=== PATIENT | male | born 1955 | race Caucasian/White ===

== ENCOUNTER 2020-01-12 06:32 | Inpatient (IN) | payer MEDICARE, OTHER ==
[~2020-01-12] VITALS: Ht 167.6 cm; Wt 62.7 kg
[~2020-01-12 06:32] MED LIST: ASPI81TA52 PO; DILT-36 PO; FURO40TA4 PO; IPRA3AMP9 NEB; OMEP20CA15 PO
--- NOTE | 2020-01-12 07:32 | NUR ---
IV ok in right forearm, no new labs needed they were drawn at 0200 at [facility] before transported to our ED, per DR. Anderson
[2020-01-12 08:14] LABS: CLARITY,URINE SLIGHTLY CLOUDY (Clear); COLOR,URINE STRAW (Yellow); GLUCOSE, URINE 250 mg/dl (Neg); KETONES,URINE NEGATIVE (Neg); LEUKOCYTE ESTERASE ,URINE NEGATIVE (Neg); NITRITES, URINE NEGATIVE (Neg); OCCULT BLOOD,URINE LARGE (Neg); PROTEIN,URINE >=300 mg/dl (Neg); UROBILINOGEN,URINE 0.2 E.U/dL (0.2-1.0)
[2020-01-12 08:15] LABS: UA COLLECTION TYPE URINAL
[2020-01-12 08:20] LABS: MUCUS STRANDS FEW /LPF (Neg); SQUAMOUS EPITHELIAL CELL,UR FEW /LPF (FEW)
[2020-01-12 08:21] LABS: BACTERIA,URINE FEW /HPF (Neg); WBC,URINE 0-4 /HPF (0-4)
[2020-01-12] MEDS ORDERED: normal saline 1000ml 1,000 ML IV SCH (08:30)
[2020-01-12] MEDS ORDERED: HYDROcodone/acetaminophen 5mg/325mg tablet PO PRN (08:30)
[2020-01-12] MEDS ORDERED: acetaminophen 325mg tablet PO PRN ×2 (08:30)
[2020-01-12] MEDS ORDERED: morphine 2 MG/ML inj. syringe IV PRN (08:30)
[2020-01-12] MEDS ORDERED: LOPE2CAP PO (08:34)
[2020-01-12] MEDS ORDERED: TIOT4MIS5 IH (09:00)
[2020-01-12] MEDS ORDERED: BUDE10.2 INH (09:00)
--- NOTE | 2020-01-12 09:11 | NUR ---
Faxed late meal tray for heart healthy diet to dietary.
[2020-01-12 09:13] LABS: ALBUMIN 3.1 G/DL (3.4-5.0); ANION GAP 17 (8-16); BLOOD UREA NITROGEN 94 MG/DL (7-18); BUN/CREATININE RATIO 13.9 (5.4-32.0); CALCIUM 8.5 MG/DL (8.5-10.1); CHLORIDE 105 MMOL/L (99-107); CREATININE 6.78 MG/DL (0.60-1.10); GLUCOSE 95 MG/DL (70-104); POTASSIUM 3.8 MMOL/L (3.5-5.1); SODIUM 139 MMOL/L (135-145); TOTAL CARBON DIOXIDE 16.6 MMOL/L (24-32); eGFR 8 ML/MIN
[2020-01-12 09:14] LABS: BASOPHILS # (AUTO) 0.1 X10'3 (0-0.2); BASOPHILS % (AUTO) 0.8 % (0-1); EOSINOPHILS # (AUTO) 0.2 X10'3 (0-0.9); EOSINOPHILS % (AUTO) 2.1 % (0-6); HEMATOCRIT 36.3 % (42.0-52.0); HEMOGLOBIN 11.8 g/dl (14.0-17.9); LYMPHOCYTES # (AUTO) 0.5 X10'3 (1.1-4.8); LYMPHOCYTES % (AUTO) 7.2 % (21-51); MEAN CORPUSCULAR HEMOGLOBIN 25.8 PG (27.0-31.0); MEAN CORPUSCULAR HGB CONC 32.4 g/dL (33.0-36.5); MEAN CORPUSCULAR VOLUME 79.6 FL (78-98); MEAN PLATELET VOLUME 7.7 FL (7.4-10.4); MONOCYTES # (AUTO) 0.6 X10'3 (0-0.9); MONOCYTES % (AUTO) 8.8 % (2-12); NEUTROPHILS # (AUTO) 5.9 X10'3 (1.8-7.7); NEUTROPHILS % (AUTO) 81.1 % (42-75); PLATELET COUNT 288 X10'3 (140-440); RED BLOOD COUNT 4.56 X10'6 (4.70-6.10); RED CELL DISTRIBUTION WIDTH 15.5 % (11.5-14.5); WHITE BLOOD COUNT 7.2 X10'3 (4.5-11.0)
[2020-01-12 09:49] VITALS: BP 163/113
[2020-01-12] MEDS ORDERED: IPRA3AMP31 NEB (09:50)
[2020-01-12] MEDS ORDERED: DILT180C53 PO (09:51)
--- NOTE | 2020-01-12 10:00 | NUR ---
Patient arrived to room 350B. Oriented patient to call light, bed controls, TV. VSS.
--- NOTE | 2020-01-12 10:00 | NUR ---
Received pt report from ER nurse Rhett VASQUEZ.
--- NOTE | 2020-01-12 10:29 | NUR ---
Informed Dr. Ocampo of BP 163/113. to look at orders.
[2020-01-12 11:51] VITALS: BP 173/118
--- NOTE | 2020-01-12 11:54 | NUR ---
MD aware of BP 173/118. to adjust orders.
[2020-01-12] MEDS ORDERED: furosemide 40mg/4ml inj IV SCH (14:30)
[2020-01-12] MEDS ORDERED: ipratropium/albuterol 3ml nebule NEB SCH (15:00)
[2020-01-12] MEDS: ipratropium/albuterol 3ml nebule NEB SCH ×2 (15:00→21:00)
[2020-01-12] MEDS: furosemide 40mg/4ml inj IV SCH ×2 (15:45→23:32)
[2020-01-12] MEDS ORDERED: furosemide 20 MG/2 ML vial IV ONE (15:55)
--- NOTE | 2020-01-12 16:30 | NUR ---
Dr. Gonzáles informed of CO2 of 16.6. No new orders at this time.
[2020-01-12] MEDS: hyDRALAzine 10mg tablet PO SCH (16:38)
--- NOTE | 2020-01-12 17:00 | NUR ---
Student documentation: Vivian Carr RN Clinical Instructor for [facility], have reviewed all interventions, assessments performed and documented by Na BARRAGAN from [facility].
--- NOTE | 2020-01-12 18:30 | NUR ---
Patient in room [facility] 350. I have received report from CHRISTINA Coppola and had the opportunity to ask questions and assume patient care. Ot sitting up in bed no complaints. pt needs weigh bed with bed alarm. Addendum: 01/12/20 at 1944 by Miriam Mc RN Amended: Links added.
--- NOTE | 2020-01-12 18:47 | NUR ---
Problems reprioritized. Patient report given, questions answered & plan of care reviewed with Magy VASQUEZ.
[2020-01-12 19:00] VITALS: BP 169/116
[2020-01-12] MEDS: albuterol 2.5 MG/3 ML nebule NEB SCH ×3 (20:17→23:41)
[2020-01-12] MEDS: budesonide 0.5mg/2ml UD nebule IH SCH (20:18)
[2020-01-12 20:30] VITALS: BP 162/98
[2020-01-12] MEDS: heparin, porcine 5000 units/ml vial SQ SCH (20:30)
[2020-01-12] MEDS: docusate sod 100mg capsule PO SCH (20:30)
[2020-01-12 23:30] VITALS: BP 163/116
[2020-01-13 00:10] VITALS: BP 162/117
[2020-01-13] MEDS: hyDRALAzine 10mg tablet PO SCH ×3 (00:11→16:48)
[2020-01-13 01:19] VITALS: BP 154/97
--- NOTE | 2020-01-13 01:19 | NUR ---
sob when amb to bathroom, pt took oxygen off, o2 back on 2l n/c. Addendum: 01/13/20 at 0121 by Miriam Mc RN Amended: Links added.
[2020-01-13] MEDS: ipratropium/albuterol 3ml nebule NEB SCH (03:00)
[2020-01-13] MEDS: albuterol 2.5 MG/3 ML nebule NEB SCH ×6 (03:05→23:10)
[2020-01-13 06:21] LABS: BASOPHILS # (AUTO) 0.1 X10'3 (0-0.2); BASOPHILS % (AUTO) 0.7 % (0-1); EOSINOPHILS # (AUTO) 0.2 X10'3 (0-0.9); HEMATOCRIT 32.2 % (42.0-52.0); HEMOGLOBIN 10.6 g/dl (14.0-17.9); LYMPHOCYTES # (AUTO) 0.6 X10'3 (1.1-4.8); LYMPHOCYTES % (AUTO) 7.5 % (21-51); MEAN CORPUSCULAR HGB CONC 32.9 g/dL (33.0-36.5); MEAN PLATELET VOLUME 7.7 FL (7.4-10.4); MONOCYTES # (AUTO) 0.7 X10'3 (0-0.9); MONOCYTES % (AUTO) 9.3 % (2-12); NEUTROPHILS # (AUTO) 6.3 X10'3 (1.8-7.7); NEUTROPHILS % (AUTO) 80.5 % (42-75); PLATELET COUNT 283 X10'3 (140-440); RED BLOOD COUNT 4.07 X10'6 (4.70-6.10); RED CELL DISTRIBUTION WIDTH 15.6 % (11.5-14.5); WHITE BLOOD COUNT 7.8 X10'3 (4.5-11.0)
[2020-01-13 06:35] LABS: ALANINE AMINOTRANSFERASE 29 U/L (12-78); ALBUMIN 2.7 G/DL (3.4-5.0); ALBUMIN/GLOBULIN RATIO 0.7 (1.1-1.5); ALKALINE PHOSPHATASE 81 IU/L (46-116); ANION GAP 16 (8-16); ASPARTATE AMINO TRANSFERASE 20 U/L (10-37); BILIRUBIN,TOTAL 0.4 MG/DL (0.1-1.0); BLOOD UREA NITROGEN 97 MG/DL (7-18); BUN/CREATININE RATIO 14.4 (5.4-32.0); CHLORIDE 105 MMOL/L (99-107); CREATININE 6.72 MG/DL (0.60-1.10); GLUCOSE 90 MG/DL (70-104); POTASSIUM 3.6 MMOL/L (3.5-5.1); SODIUM 138 MMOL/L (135-145); TOTAL CARBON DIOXIDE 16.6 MMOL/L (24-32); TOTAL PROTEIN 6.5 G/DL (6.4-8.2); eGFR 8 ML/MIN
--- NOTE | 2020-01-13 06:40 | NUR ---
Problems reprioritized. Patient report given, questions answered & plan of care reviewed with CHRISTINA Fox. Addendum: 01/13/20 at 0640 by Miriam Mc RN Amended: Links added.
--- NOTE | 2020-01-13 06:43 | NUR ---
Patient in room [facility] 350. I have received report from CHRISTINA Bhatti and had the opportunity to ask questions and assume patient care.
[2020-01-13 08:00] VITALS: BP 176/116
[2020-01-13] MEDS ORDERED: diltiazem CD 180mg cap (once-daily) PO SCH (08:00)
[2020-01-13] MEDS ORDERED: non-formulary drug (Tiotropium Bromide (Spiriva Respimat) 2 PUFFS) IH SCH (08:00)
[2020-01-13] MEDS ORDERED: diltiazem CD 120mg capsule (once-daily) PO SCH (08:00)
[2020-01-13] MEDS ORDERED: furosemide 40mg/4ml inj IV SCH (08:00)
[2020-01-13] MEDS: heparin, porcine 5000 units/ml vial SQ SCH ×2 (08:14→20:14)
[2020-01-13] MEDS: furosemide 40mg/4ml inj IV SCH ×2 (08:14→13:55)
[2020-01-13] MEDS: pantoprazole 40mg Tablet.DR PO SCH (08:14)
[2020-01-13] MEDS: docusate sod 100mg capsule PO SCH ×2 (08:14→20:14)
[2020-01-13] MEDS: aspirin 81mg tablet.DR PO SCH (08:14)
[2020-01-13] MEDS: ipratropium/albuterol 3ml nebule NEB PRN (08:44)
[2020-01-13] MEDS: budesonide 0.5mg/2ml UD nebule IH SCH ×2 (08:44→20:18)
[2020-01-13 11:30] VITALS: BP 162/98
[2020-01-13] MEDS: furosemide 10 MG/1 ML 10ml inj IV SCH ×2 (16:49→20:31)
[2020-01-13 18:00] VITALS: BP 146/100
--- NOTE | 2020-01-13 18:43 | NUR ---
Patient in room [facility] 350. I have received report from CHRISTINA Fox and had the opportunity to ask questions and assume patient care. Addendum: 01/13/20 at 1843 by Germania Hopper RN Amended: Links added.
--- NOTE | 2020-01-13 18:45 | NUR ---
Problems reprioritized. Patient report given, questions answered & plan of care reviewed with Dianna Das RN.
[2020-01-13] MEDS: carvedilol 6.25mg tablet PO SCH (20:14)
[2020-01-14] VITALS: BP 143/102
[2020-01-14] MEDS: hyDRALAzine 10mg tablet PO SCH ×3 (00:23→16:44)
[2020-01-14 02:30] VITALS: BP 126/79
[2020-01-14] MEDS: furosemide 10 MG/1 ML 10ml inj IV SCH ×4 (02:38→20:25)
[2020-01-14] MEDS: albuterol 2.5 MG/3 ML nebule NEB SCH ×5 (04:00→20:19)
[2020-01-14 05:34] LABS: BASOPHILS % (AUTO) 0.9 % (0-1); EOSINOPHILS # (AUTO) 0.2 X10'3 (0-0.9); EOSINOPHILS % (AUTO) 3.4 % (0-6); HEMOGLOBIN 10.1 g/dl (14.0-17.9); LYMPHOCYTES # (AUTO) 0.5 X10'3 (1.1-4.8); LYMPHOCYTES % (AUTO) 10.2 % (21-51); MEAN CORPUSCULAR HGB CONC 32.6 g/dL (33.0-36.5); MEAN CORPUSCULAR VOLUME 79.8 FL (78-98); MEAN PLATELET VOLUME 7.7 FL (7.4-10.4); MONOCYTES # (AUTO) 0.7 X10'3 (0-0.9); MONOCYTES % (AUTO) 13.1 % (2-12); NEUTROPHILS # (AUTO) 3.7 X10'3 (1.8-7.7); NEUTROPHILS % (AUTO) 72.4 % (42-75); PLATELET COUNT 225 X10'3 (140-440); RED BLOOD COUNT 3.89 X10'6 (4.70-6.10); RED CELL DISTRIBUTION WIDTH 15.5 % (11.5-14.5); WHITE BLOOD COUNT 5.1 X10'3 (4.5-11.0)
[2020-01-14 05:39] LABS: ALANINE AMINOTRANSFERASE 23 U/L (12-78); ALBUMIN 2.5 G/DL (3.4-5.0); ALBUMIN/GLOBULIN RATIO 0.7 (1.1-1.5); ALKALINE PHOSPHATASE 69 IU/L (46-116); ANION GAP 15 (8-16); ASPARTATE AMINO TRANSFERASE 17 U/L (10-37); BILIRUBIN,TOTAL 0.4 MG/DL (0.1-1.0); BLOOD UREA NITROGEN 99 MG/DL (7-18); BUN/CREATININE RATIO 14.2 (5.4-32.0); CHLORIDE 106 MMOL/L (99-107); CREATININE 6.99 MG/DL (0.60-1.10); GLUCOSE 109 MG/DL (70-104); POTASSIUM 3.8 MMOL/L (3.5-5.1); SODIUM 140 MMOL/L (135-145); TOTAL CARBON DIOXIDE 19.4 MMOL/L (24-32); eGFR 8 ML/MIN
--- NOTE | 2020-01-14 06:29 | NUR ---
Problems reprioritized. Patient report given, questions answered & plan of care reviewed with CHRISTINA Parra.
--- NOTE | 2020-01-14 06:44 | NUR ---
Patient in room [facility] 350. I have received report from EMILY Das RN and had the opportunity to ask questions and assume patient care.
[2020-01-14] MEDS: ipratropium/albuterol 3ml nebule NEB PRN (07:21)
[2020-01-14] MEDS: budesonide 0.5mg/2ml UD nebule IH SCH ×2 (07:21→20:20)
[2020-01-14] MEDS: pantoprazole 40mg Tablet.DR PO SCH (08:44)
[2020-01-14] MEDS: carvedilol 6.25mg tablet PO SCH ×2 (08:44→20:25)
[2020-01-14] MEDS: heparin, porcine 5000 units/ml vial SQ SCH ×2 (08:45→20:25)
[2020-01-14] MEDS: docusate sod 100mg capsule PO SCH ×2 (08:45→20:25)
[2020-01-14] MEDS: aspirin 81mg tablet.DR PO SCH (08:45)
[2020-01-14 12:00] VITALS: BP 133/91
[2020-01-14 18:00] VITALS: BP 136/89
--- NOTE | 2020-01-14 18:07 | NUR ---
Problems reprioritized. Patient report given, questions answered & plan of care reviewed with Kirsten Das RN.
--- NOTE | 2020-01-14 18:16 | NUR ---
Patient in room [facility] 350. I have received report from CHRISTINA Parra and had the opportunity to ask questions and assume patient care. Addendum: 01/14/20 at 1816 by Germania Hopper RN Amended: Links added.
[2020-01-15] VITALS: BP 127/88
[2020-01-15] MEDS: albuterol 2.5 MG/3 ML nebule NEB SCH ×6 (00:12→20:31)
[2020-01-15] MEDS: furosemide 10 MG/1 ML 10ml inj IV SCH ×4 (01:21→20:53)
[2020-01-15] MEDS: hyDRALAzine 10mg tablet PO SCH ×3 (01:21→17:09)
[2020-01-15 05:42] LABS: ALANINE AMINOTRANSFERASE 18 U/L (12-78); ALBUMIN 2.4 G/DL (3.4-5.0); ALBUMIN/GLOBULIN RATIO 0.7 (1.1-1.5); ALKALINE PHOSPHATASE 67 IU/L (46-116); ANION GAP 17 (8-16); ASPARTATE AMINO TRANSFERASE 14 U/L (10-37); BILIRUBIN,TOTAL 0.5 MG/DL (0.1-1.0); BLOOD UREA NITROGEN 102 MG/DL (7-18); BUN/CREATININE RATIO 14.6 (5.4-32.0); CALCIUM 7.8 MG/DL (8.5-10.1); CHLORIDE 103 MMOL/L (99-107); CREATININE 6.99 MG/DL (0.60-1.10); GLUCOSE 101 MG/DL (70-104); POTASSIUM 3.7 MMOL/L (3.5-5.1); SODIUM 139 MMOL/L (135-145); TOTAL CARBON DIOXIDE 18.7 MMOL/L (24-32); TOTAL PROTEIN 5.9 G/DL (6.4-8.2); eGFR 8 ML/MIN
--- NOTE | 2020-01-15 06:22 | NUR ---
Problems reprioritized. Patient report given, questions answered & plan of care reviewed with CHRISTINA Parra. Addendum: 01/15/20 at 0622 by Germania Hopper RN Amended: Links added.
[2020-01-15 06:26] LABS: BASOPHILS % (AUTO) 0.8 % (0-1); EOSINOPHILS # (AUTO) 0.2 X10'3 (0-0.9); HEMATOCRIT 29.9 % (42.0-52.0); HEMOGLOBIN 9.8 g/dl (14.0-17.9); LYMPHOCYTES # (AUTO) 0.6 X10'3 (1.1-4.8); MEAN CORPUSCULAR HGB CONC 32.9 g/dL (33.0-36.5); MEAN CORPUSCULAR VOLUME 78.8 FL (78-98); MEAN PLATELET VOLUME 7.7 FL (7.4-10.4); MONOCYTES # (AUTO) 0.6 X10'3 (0-0.9); MONOCYTES % (AUTO) 11.2 % (2-12); NEUTROPHILS # (AUTO) 4.2 X10'3 (1.8-7.7); PLATELET COUNT 241 X10'3 (140-440); RED BLOOD COUNT 3.79 X10'6 (4.70-6.10); RED CELL DISTRIBUTION WIDTH 15.3 % (11.5-14.5); WHITE BLOOD COUNT 5.6 X10'3 (4.5-11.0)
--- NOTE | 2020-01-15 07:08 | NUR ---
Patient in room [facility] 350. I have received report from Kirsten Das RN and had the opportunity to ask questions and assume patient care.
[2020-01-15] MEDS: budesonide 0.5mg/2ml UD nebule IH SCH ×2 (07:48→20:32)
[2020-01-15] MEDS: carvedilol 6.25mg tablet PO SCH ×2 (08:07→20:52)
[2020-01-15] MEDS: pantoprazole 40mg Tablet.DR PO SCH (08:07)
[2020-01-15] MEDS: heparin, porcine 5000 units/ml vial SQ SCH ×2 (08:08→20:54)
[2020-01-15] MEDS: aspirin 81mg tablet.DR PO SCH (08:08)
[2020-01-15] MEDS: docusate sod 100mg capsule PO SCH ×2 (08:08→20:53)
[2020-01-15 10:02] VITALS: BP 134/86
[2020-01-15 15:43] VITALS: BP 137/70
--- NOTE | 2020-01-15 18:50 | NUR ---
Patient in room [facility] 350. I have received report from Fidel VASQUEZ and had the opportunity to ask questions and assume patient care.
[2020-01-15 19:00] VITALS: BP 150/101
--- NOTE | 2020-01-15 19:00 | NUR ---
Problems reprioritized. Patient report given, questions answered & plan of care reviewed with Ely VASQUEZ.
[2020-01-16] VITALS: BP 139/99
[2020-01-16 00:10] VITALS: BP 132/93
[2020-01-16] MEDS: hyDRALAzine 10mg tablet PO SCH ×4 (00:13→23:44)
[2020-01-16] MEDS: albuterol 2.5 MG/3 ML nebule NEB SCH ×7 (00:22→23:33)
[2020-01-16 02:02] VITALS: BP 130/92
[2020-01-16] MEDS: furosemide 10 MG/1 ML 10ml inj IV SCH ×4 (02:05→20:07)
--- NOTE | 2020-01-16 06:49 | NUR ---
Problems reprioritized. Patient report given, questions answered & plan of care reviewed with Fidel RN.
--- NOTE | 2020-01-16 07:03 | NUR ---
Patient in room [facility] 350. I have received report from OG VASQUEZ and had the opportunity to ask questions and assume patient care.
--- NOTE | 2020-01-16 07:03 | NUR ---
Patient in room [facility] 350. I have received report from gianna VASQUEZ and had the opportunity to ask questions and assume patient care.
--- NOTE | 2020-01-16 07:05 | NUR ---
Patient in room [facility] 350. I have received report from Fidel VASQUEZ and had the opportunity to ask questions and assume patient care.
[2020-01-16] MEDS: budesonide 0.5mg/2ml UD nebule IH SCH ×2 (07:15→20:06)
[2020-01-16 07:45] VITALS: BP 143/100
[2020-01-16 08:12] LABS: BASOPHILS % (AUTO) 0.8 % (0-1); EOSINOPHILS # (AUTO) 0.2 X10'3 (0-0.9); EOSINOPHILS % (AUTO) 3.2 % (0-6); HEMATOCRIT 31.1 % (42.0-52.0); HEMOGLOBIN 10.4 g/dl (14.0-17.9); LYMPHOCYTES # (AUTO) 0.7 X10'3 (1.1-4.8); LYMPHOCYTES % (AUTO) 11.1 % (21-51); MEAN CORPUSCULAR HEMOGLOBIN 26.3 PG (27.0-31.0); MEAN CORPUSCULAR HGB CONC 33.5 g/dL (33.0-36.5); MEAN CORPUSCULAR VOLUME 78.7 FL (78-98); MEAN PLATELET VOLUME 7.6 FL (7.4-10.4); MONOCYTES # (AUTO) 0.7 X10'3 (0-0.9); MONOCYTES % (AUTO) 10.8 % (2-12); NEUTROPHILS # (AUTO) 4.8 X10'3 (1.8-7.7); NEUTROPHILS % (AUTO) 74.1 % (42-75); PLATELET COUNT 265 X10'3 (140-440); RED BLOOD COUNT 3.96 X10'6 (4.70-6.10); RED CELL DISTRIBUTION WIDTH 15.6 % (11.5-14.5); WHITE BLOOD COUNT 6.5 X10'3 (4.5-11.0)
[2020-01-16] MEDS: pantoprazole 40mg Tablet.DR PO SCH (08:30)
[2020-01-16] MEDS: docusate sod 100mg capsule PO SCH ×2 (08:33→20:08)
[2020-01-16] MEDS: carvedilol 6.25mg tablet PO SCH ×2 (08:34→20:08)
[2020-01-16] MEDS: aspirin 81mg tablet.DR PO SCH (08:36)
[2020-01-16] MEDS: heparin, porcine 5000 units/ml vial SQ SCH ×2 (08:38→20:08)
[2020-01-16 08:47] LABS: ALANINE AMINOTRANSFERASE 24 U/L (12-78); ALBUMIN 2.7 G/DL (3.4-5.0); ALBUMIN/GLOBULIN RATIO 0.7 (1.1-1.5); ALKALINE PHOSPHATASE 72 IU/L (46-116); ANION GAP 15 (8-16); ASPARTATE AMINO TRANSFERASE 15 U/L (10-37); BILIRUBIN,TOTAL 0.4 MG/DL (0.1-1.0); BLOOD UREA NITROGEN 104 MG/DL (7-18); BUN/CREATININE RATIO 14.1 (5.4-32.0); CALCIUM 7.9 MG/DL (8.5-10.1); CHLORIDE 100 MMOL/L (99-107); CREATININE 7.39 MG/DL (0.60-1.10); GLUCOSE 94 MG/DL (70-104); POTASSIUM 3.5 MMOL/L (3.5-5.1); SODIUM 136 MMOL/L (135-145); TOTAL PROTEIN 6.5 G/DL (6.4-8.2); eGFR 7 ML/MIN
--- NOTE | 2020-01-16 10:16 | NUR ---
Student Medication Administration: For this medication-pass time frame, all medication were reviewed, dispensed, administered and documented per hospital policy by Peter, nursing students.
--- NOTE | 2020-01-16 12:08 | NUR ---
Problems reprioritized. Patient report given, questions answered & plan of care reviewed with Fidel RN.
[2020-01-16] MEDS ORDERED: LIDOcaine 1%/PF 5ML 10 MG/ML VIAL ONE (13:35)
[2020-01-16] MEDS ORDERED: heparin 1,000unit/ml 10ml vial 10 ML ONE (13:47)
[2020-01-16] MEDS ORDERED: fentaNYL/PF 50MCG/1 ML 2ML syringe ONE (13:47)
--- NOTE | 2020-01-16 14:56 | NUR ---
Patient TDC placed, able to use. Dr. Ulloa notified at this time of placement of catheter.
[2020-01-16] MEDS ORDERED: heparin 1,000 units/ml 10ml inj IV ONE (15:15)
[2020-01-16] MEDS ORDERED: epoetin 20,000 units/ml inj IV ONE (15:15)
[2020-01-16] MEDS ORDERED: heparin 1,000unit/ml 10ml vial 10 ML IV ONE (15:15)
[2020-01-16] MEDS ORDERED: albumin (human) 25% 100ml IV 100 ML IV PRN (15:15)
[2020-01-16] MEDS ORDERED: heparin 1,000 units/ml 10ml inj HE ONE ×2 (15:20)
--- NOTE | 2020-01-16 18:23 | NUR ---
Problems reprioritized. Patient report given, questions answered & plan of care reviewed with Ely VASQUEZ.
--- NOTE | 2020-01-16 18:35 | NUR ---
Patient in room [facility] 350. I have received report from Fidel VASQUEZ and had the opportunity to ask questions and assume patient care.
--- NOTE | 2020-01-16 19:35 | NUR ---
Problems reprioritized. Patient report given, questions answered & plan of care reviewed with Leida VASQUEZ.
[2020-01-16 20:00] VITALS: BP 122/87
--- NOTE | 2020-01-16 21:43 | NUR ---
Patient in room [facility] 350. I have received report from CHRISTINA Graves and had the opportunity to ask questions and assume patient care. Addendum: 01/16/20 at 2144 by Leida Castellano RN Amended: Links added.
[2020-01-17 00:38] VITALS: BP 137/90
[2020-01-17] MEDS: furosemide 10 MG/1 ML 10ml inj IV SCH ×3 (01:13→14:00)
[2020-01-17] MEDS: albuterol 2.5 MG/3 ML nebule NEB SCH ×6 (03:27→23:17)
[2020-01-17 05:21] LABS: BASOPHILS % (AUTO) 0.8 % (0-1); EOSINOPHILS # (AUTO) 0.1 X10'3 (0-0.9); HEMATOCRIT 29.1 % (42.0-52.0); HEMOGLOBIN 9.8 g/dl (14.0-17.9); LYMPHOCYTES # (AUTO) 0.7 X10'3 (1.1-4.8); LYMPHOCYTES % (AUTO) 13.1 % (21-51); MEAN CORPUSCULAR HGB CONC 33.7 g/dL (33.0-36.5); MEAN CORPUSCULAR VOLUME 77.2 FL (78-98); MEAN PLATELET VOLUME 7.7 FL (7.4-10.4); MONOCYTES # (AUTO) 0.6 X10'3 (0-0.9); MONOCYTES % (AUTO) 11.6 % (2-12); NEUTROPHILS # (AUTO) 3.9 X10'3 (1.8-7.7); NEUTROPHILS % (AUTO) 72.5 % (42-75); PLATELET COUNT 240 X10'3 (140-440); RED BLOOD COUNT 3.77 X10'6 (4.70-6.10); RED CELL DISTRIBUTION WIDTH 15.3 % (11.5-14.5); WHITE BLOOD COUNT 5.3 X10'3 (4.5-11.0)
[2020-01-17 05:43] LABS: ALANINE AMINOTRANSFERASE 20 U/L (12-78); ALBUMIN 2.5 G/DL (3.4-5.0); ALBUMIN/GLOBULIN RATIO 0.7 (1.1-1.5); ALKALINE PHOSPHATASE 67 IU/L (46-116); ANION GAP 12 (8-16); ASPARTATE AMINO TRANSFERASE 11 U/L (10-37); BILIRUBIN,TOTAL 0.3 MG/DL (0.1-1.0); BLOOD UREA NITROGEN 68 MG/DL (7-18); BUN/CREATININE RATIO 12.3 (5.4-32.0); CHLORIDE 101 MMOL/L (99-107); CREATININE 5.54 MG/DL (0.60-1.10); GLUCOSE 147 MG/DL (70-104); POTASSIUM 3.4 MMOL/L (3.5-5.1); SODIUM 137 MMOL/L (135-145); TOTAL PROTEIN 6.1 G/DL (6.4-8.2); eGFR 10 ML/MIN
--- NOTE | 2020-01-17 06:18 | NUR ---
Problems reprioritized. Patient report given, questions answered & plan of care reviewed with CHRISTINA Gilbert. Addendum: 01/17/20 at 0619 by Leida Castellano RN Amended: Links added.
[2020-01-17 07:00] VITALS: BP 129/89
--- NOTE | 2020-01-17 07:09 | NUR ---
Patient in room [facility] 350. I have received report from Leida VASQUEZ and had the opportunity to ask questions and assume patient care.
[2020-01-17] MEDS: heparin, porcine 5000 units/ml vial SQ SCH (07:55)
[2020-01-17] MEDS: aspirin 81mg tablet.DR PO SCH (07:55)
[2020-01-17] MEDS: hyDRALAzine 10mg tablet PO SCH ×2 (07:55→16:00)
[2020-01-17] MEDS: carvedilol 6.25mg tablet PO SCH ×2 (07:55→21:19)
[2020-01-17] MEDS: docusate sod 100mg capsule PO SCH ×2 (07:55→20:00)
[2020-01-17] MEDS: pantoprazole 40mg Tablet.DR PO SCH (07:56)
[2020-01-17] MEDS ORDERED: heparin 1,000unit/ml 10ml vial 10 ML IV ONE (08:18)
[2020-01-17] MEDS ORDERED: epoetin 20,000 units/ml inj IV ONE (08:20)
[2020-01-17] MEDS ORDERED: heparin 1,000 units/ml 10ml inj IV ONE (08:20)
[2020-01-17] MEDS ORDERED: albumin (human) 25% 100ml IV 100 ML IV PRN (08:20)
[2020-01-17] MEDS ORDERED: heparin 1,000 units/ml 10ml inj HE ONE ×2 (08:25)
[2020-01-17] MEDS: budesonide 0.5mg/2ml UD nebule IH SCH ×2 (09:05→19:23)
--- NOTE | 2020-01-17 12:32 | NUR ---
Initial: Pt admitted with CKD d/t polycystic kidney disease. Pt s/p TDC placement for HD while waiting for the PD cath to be placed per MD notes. Pt on heart healthy diet documented with fluctuating PO intake, averaging 50-75% however up to 100% PO intake at breakfast this morning. Pt to be NPO after midnight tonight for PD cath placement. LBM 01/15. No nutrition intervention at this time. Will continue to follow and monitor need for additional protein to meet needs of dialysis. Recommendations: 1) Continue regular diet; monitor electrolytes and need for diet change to renal 2) Monitor need for ONS/additional protein 3) Monitor need for Phos binder; currently no phos labs 4) Bowel care PRN 5) Wt per rx Addendum: 01/17/20 at [address] Amended: Links added.
--- NOTE | 2020-01-17 16:05 | NUR ---
Lasix and Hydralazine held due to dialysis will continue to monitor.
[2020-01-17 16:06] VITALS: BP 116/95
--- NOTE | 2020-01-17 18:10 | NUR ---
Patient in room [facility] 350. I have received report from Ofelia VASQUEZ and had the opportunity to ask questions and assume patient care.
--- NOTE | 2020-01-17 18:32 | NUR ---
Problems reprioritized. Patient report given, questions answered & plan of care reviewed with Anuradha VASQUEZ.
[2020-01-17 20:00] VITALS: BP 118/81
[2020-01-17] MEDS: furosemide 40mg tablet PO SCH (20:00)
--- NOTE | 2020-01-17 21:20 | NUR ---
Held Lasix due to K at 3.4. Patient just completed dialysis, removed 2.5 L per solutions development analyst.
[2020-01-17 23:37] VITALS: BP 120/93
[2020-01-18] VITALS (23 sets, daily range): BP systolic 101–141; BP diastolic 63–97
[2020-01-18] MEDS: albuterol 2.5 MG/3 ML nebule NEB SCH ×6 (03:27→23:10)
--- NOTE | 2020-01-18 06:44 | NUR ---
Problems reprioritized. Patient report given, questions answered & plan of care reviewed with Sarah RN.
--- NOTE | 2020-01-18 06:45 | NUR ---
Patient in room [facility] 350. I have received report from CHIRSTINA Ling and had the opportunity to ask questions and assume patient care.
[2020-01-18] MEDS: budesonide 0.5mg/2ml UD nebule IH SCH ×2 (07:12→19:24)
[2020-01-18] MEDS: furosemide 40mg tablet PO SCH ×2 (08:00→20:27)
[2020-01-18] MEDS: aspirin 81mg tablet.DR PO SCH (08:00)
[2020-01-18] MEDS: docusate sod 100mg capsule PO SCH ×2 (08:00→20:28)
[2020-01-18] MEDS: carvedilol 6.25mg tablet PO SCH ×2 (08:40→20:28)
[2020-01-18] MEDS: hyDRALAzine 10mg tablet PO SCH ×4 (08:40→23:46)
[2020-01-18] MEDS: pantoprazole 40mg Tablet.DR PO SCH (08:40)
[2020-01-18 09:02] LABS: BASOPHILS % (AUTO) 0.8 % (0-1); EOSINOPHILS # (AUTO) 0.1 X10'3 (0-0.9); EOSINOPHILS % (AUTO) 2.4 % (0-6); HEMATOCRIT 30.8 % (42.0-52.0); HEMOGLOBIN 10.2 g/dl (14.0-17.9); LYMPHOCYTES # (AUTO) 0.9 X10'3 (1.1-4.8); LYMPHOCYTES % (AUTO) 14.6 % (21-51); MEAN CORPUSCULAR HEMOGLOBIN 25.9 PG (27.0-31.0); MEAN CORPUSCULAR HGB CONC 33.1 g/dL (33.0-36.5); MEAN PLATELET VOLUME 7.9 FL (7.4-10.4); MONOCYTES # (AUTO) 0.9 X10'3 (0-0.9); MONOCYTES % (AUTO) 14.5 % (2-12); NEUTROPHILS # (AUTO) 4.1 X10'3 (1.8-7.7); NEUTROPHILS % (AUTO) 67.7 % (42-75); PLATELET COUNT 249 X10'3 (140-440); RED BLOOD COUNT 3.95 X10'6 (4.70-6.10); RED CELL DISTRIBUTION WIDTH 15.4 % (11.5-14.5)
[2020-01-18 09:25] LABS: ALANINE AMINOTRANSFERASE 21 U/L (12-78); ALBUMIN 2.5 G/DL (3.4-5.0); ALBUMIN/GLOBULIN RATIO 0.7 (1.1-1.5); ALKALINE PHOSPHATASE 70 IU/L (46-116); ANION GAP 11 (8-16); ASPARTATE AMINO TRANSFERASE 14 U/L (10-37); BILIRUBIN,TOTAL 0.4 MG/DL (0.1-1.0); BLOOD UREA NITROGEN 49 MG/DL (7-18); BUN/CREATININE RATIO 10.5 (5.4-32.0); CALCIUM 8.7 MG/DL (8.5-10.1); CHLORIDE 102 MMOL/L (99-107); CREATININE 4.66 MG/DL (0.60-1.10); GLUCOSE 96 MG/DL (70-104); POTASSIUM 3.8 MMOL/L (3.5-5.1); SODIUM 138 MMOL/L (135-145); TOTAL CARBON DIOXIDE 24.9 MMOL/L (24-32); TOTAL PROTEIN 6.1 G/DL (6.4-8.2); eGFR 13 ML/MIN
[2020-01-18] MEDS ORDERED: ringers solution, lacted 1,000 ML IV SCH (10:45)
[2020-01-18] MEDS ORDERED: ondansetron/PF 4mg/2ml inj IV PRN (10:45)
[2020-01-18] MEDS ORDERED: proCHLORperazine 10 MG/2 ml inj IV PRN (10:45)
[2020-01-18] MEDS ORDERED: meperidine/PF 25mg/ml syringe IV PRN ×3 (10:45)
[2020-01-18] MEDS ORDERED: morphine 2 MG/ML inj. syringe IV PRN (10:45)
[2020-01-18] MEDS ORDERED: morphine 4 MG/ML inj SYRINge IV PRN (10:45)
[2020-01-18] MEDS ORDERED: mupirocin 2% ointment 22GM ONE (13:27)
[2020-01-18] MEDS ORDERED: BUPIVAcaine/PF 2.5mg/ml (0.25%) 10ml vial ONE (13:27)
[2020-01-18] MEDS ORDERED: ceFAZolin 1000mg inj ONE ×3 (13:27→14:19)
[2020-01-18] MEDS ORDERED: heparin sodium, porcine/PF 100unit/ml 5ML syringe ONE (13:27)
--- NOTE | 2020-01-18 13:38 | NUR ---
Patient leaving to OR via OR nursing staff, pt stable, blood glucose 90.
--- NOTE | 2020-01-18 13:44 | NUR ---
Report given to CHRISTINA Graves in recovery. all questions answered.
[2020-01-18] MEDS ORDERED: ATRACURIUM 10 MG/ML 5ML INJECTION IV ONE (13:49)
[2020-01-18] MEDS ORDERED: midazolam 2 mg/2 ml injection ONE (13:54)
[2020-01-18] MEDS ORDERED: fentaNYL/PF 50MCG/1 ML 2ML syringe ONE (13:54)
[2020-01-18] MEDS ORDERED: desflurane 240ml liquid inh. IH ONE (14:00)
[2020-01-18] MEDS ORDERED: propofol 10mg/ml 20ml vial IV ONE (14:00)
[2020-01-18] MEDS ORDERED: neostigmine methylsulfate 1 MG/ML 10ml vial ONE ×2 (14:00→14:52)
[2020-01-18] MEDS ORDERED: etomidate 2mg/ml inj. ONE (14:18)
[2020-01-18] MEDS ORDERED: glycopyrrolate 0.2mg/ml inj ONE (14:52)
--- NOTE | 2020-01-18 15:03 | NUR ---
Received from OR via BED, accompanied by Anesthesiologist DR CHAPMAN and report given by Anesthesiologist. PT DROWSY, COMBATIVE, ABDOMEN W/BANDRED AND [place] BENEDICTO W/VALERIE LEFT LOWER QUADRANT, CDI. Addendum: 01/18/20 at 1556 by Bety Navarro RN Amended: Links added.
--- NOTE | 2020-01-18 16:13 | NUR ---
Report called to receiving nurse. Transferred via BED, NO Belongings, RECEIVING RN AT BEDSIDE TO RECEIVE PT, BLL, CALL LIGHT GIVEN, SIDE RAILS UP. Special Issues communicated to receiving nurse. YES. Addendum: 01/18/20 at 1640 by Bety Navarro RN Amended: Links added.
--- NOTE | 2020-01-18 16:16 | NUR ---
pt back from OR, transported on hospital bed. Call light in reach, post op VS started.
[2020-01-18] MEDS: HYDROcodone/acetaminophen 10/325mg tab PO PRN (18:03)
--- NOTE | 2020-01-18 18:30 | NUR ---
Patient in room [facility] 350. I have received report from CHRISTINA Smith and had the opportunity to ask questions and assume patient care. Addendum: 01/19/20 at 0125 by Miriam Mc RN Amended: Links added.
--- NOTE | 2020-01-18 18:48 | NUR ---
Problems reprioritized. Patient report given, questions answered & plan of care reviewed with CHRISTINA Bhatti.
[2020-01-18] MEDS: heparin, porcine 5000 units/ml vial SQ SCH (20:27)
--- NOTE | 2020-01-18 23:40 | NUR ---
Nausea, no emesis. b/p 107/71 zofran given. Addendum: 01/19/20 at 0044 by Miriam Mc RN Amended: Links added.
[2020-01-18] MEDS: ondansetron/PF 4mg/2ml inj IV PRN (23:46)
[2020-01-19] MEDS: HYDROcodone/acetaminophen 10/325mg tab PO PRN ×4 (01:45→20:16)
[2020-01-19] MEDS: albuterol 2.5 MG/3 ML nebule NEB SCH ×6 (03:59→23:20)
[2020-01-19 05:17] LABS: HBSAG SCREEN Negative (Negative)
--- NOTE | 2020-01-19 06:50 | NUR ---
Pt sitting up in bed c/o abd pain, norco given. noticed small to mod serosang drng on bed , assessed abd, pt cap was off peritoneal tubing, Rn at bedside, helped clean tubing and cap replaced. charge rn notifed, Rn notifed. RN to call truck driver's offsider this am. for f/u. Addendum: 01/19/20 at 0724 by Miriam Mc RN Amended: Links added.
[2020-01-19] MEDS: budesonide 0.5mg/2ml UD nebule IH SCH ×2 (07:31→20:31)
[2020-01-19 08:00] VITALS: BP 131/96
[2020-01-19] MEDS: furosemide 40mg tablet PO SCH ×2 (08:00→20:17)
[2020-01-19] MEDS: hyDRALAzine 10mg tablet PO SCH ×2 (08:00→16:35)
[2020-01-19] MEDS ORDERED: heparin 1,000unit/ml 10ml vial 10 ML IV ONE (08:45)
[2020-01-19] MEDS ORDERED: epoetin 20,000 units/ml inj IV ONE (08:45)
[2020-01-19] MEDS ORDERED: heparin 1,000 units/ml 10ml inj IV ONE (08:45)
[2020-01-19] MEDS ORDERED: albumin (human) 25% 100ml IV 100 ML IV PRN (08:45)
[2020-01-19] MEDS ORDERED: heparin 1,000 units/ml 10ml inj HE ONE ×2 (08:50)
[2020-01-19 08:52] LABS: BASOPHILS % (AUTO) 0.5 % (0-1); EOSINOPHILS # (AUTO) 0.1 X10'3 (0-0.9); EOSINOPHILS % (AUTO) 0.6 % (0-6); HEMATOCRIT 31.4 % (42.0-52.0); HEMOGLOBIN 10.5 g/dl (14.0-17.9); LYMPHOCYTES % (AUTO) 10.8 % (21-51); MEAN CORPUSCULAR HEMOGLOBIN 26.4 PG (27.0-31.0); MEAN CORPUSCULAR HGB CONC 33.4 g/dL (33.0-36.5); MEAN CORPUSCULAR VOLUME 79.1 FL (78-98); MEAN PLATELET VOLUME 7.8 FL (7.4-10.4); MONOCYTES # (AUTO) 0.7 X10'3 (0-0.9); MONOCYTES % (AUTO) 7.2 % (2-12); NEUTROPHILS # (AUTO) 7.6 X10'3 (1.8-7.7); NEUTROPHILS % (AUTO) 80.9 % (42-75); PLATELET COUNT 287 X10'3 (140-440); RED BLOOD COUNT 3.98 X10'6 (4.70-6.10); RED CELL DISTRIBUTION WIDTH 15.8 % (11.5-14.5); WHITE BLOOD COUNT 9.4 X10'3 (4.5-11.0)
[2020-01-19 09:09] LABS: ALANINE AMINOTRANSFERASE 16 U/L (12-78); ALBUMIN 2.8 G/DL (3.4-5.0); ALBUMIN/GLOBULIN RATIO 0.7 (1.1-1.5); ALKALINE PHOSPHATASE 74 IU/L (46-116); ANION GAP 11 (8-16); ASPARTATE AMINO TRANSFERASE 11 U/L (10-37); BILIRUBIN,TOTAL 0.3 MG/DL (0.1-1.0); BLOOD UREA NITROGEN 62 MG/DL (7-18); BUN/CREATININE RATIO 10.7 (5.4-32.0); CALCIUM 9.1 MG/DL (8.5-10.1); CHLORIDE 99 MMOL/L (99-107); CREATININE 5.82 MG/DL (0.60-1.10); GLUCOSE 176 MG/DL (70-104); POTASSIUM 4.5 MMOL/L (3.5-5.1); SODIUM 133 MMOL/L (135-145); TOTAL CARBON DIOXIDE 23.3 MMOL/L (24-32); TOTAL PROTEIN 6.7 G/DL (6.4-8.2); eGFR 10 ML/MIN
--- NOTE | 2020-01-19 10:00 | NUR ---
TERA PerdomoI RN, was notified that, per scoop machine operator report, the PD catheter cap was found to be detached with SS drainage had leaked from tube. The cap was cleansed and reapplied to PD catheter, per CHRISTINA Bhatti, . (Dr. Locke was notified during morning rounds.) Per Leanne, sterile cap will be applied this am.
[2020-01-19] MEDS: pantoprazole 40mg Tablet.DR PO SCH (10:49)
[2020-01-19] MEDS: carvedilol 6.25mg tablet PO SCH ×2 (10:49→20:17)
[2020-01-19] MEDS: aspirin 81mg tablet.DR PO SCH (10:49)
[2020-01-19] MEDS: docusate sod 100mg capsule PO SCH ×2 (10:49→20:17)
[2020-01-19] MEDS: heparin, porcine 5000 units/ml vial SQ SCH ×2 (10:50→20:20)
[2020-01-19 11:00] VITALS: BP 134/99
[2020-01-19] MEDS: simethicone 80mg chew tab PO SCH ×2 (14:33→20:19)
--- NOTE | 2020-01-19 18:30 | NUR ---
Patient in room [facility] 350. I have received report from CHRISTINA Javed and had the opportunity to ask questions and assume patient care. Addendum: 01/19/20 at 1928 by Miriam Mc RN Amended: Links added.
--- NOTE | 2020-01-19 19:24 | NUR ---
sitting up in bed,c/o pain abd, 03/18 states diann only helping for a short time. will notify md to req more medication.. family concerned about pt appetite, will order nutrition consult. pt only had few bites of food. Addendum: 01/19/20 at 1926 by Miriam Mc RN Amended: Links added.
[2020-01-19] MEDS ORDERED: morphine 4 MG/ML inj SYRINge IV PRN (20:10)
[2020-01-19 20:30] VITALS: BP 126/78
[2020-01-19] MEDS: morphine 2 MG/ML inj. syringe IV PRN (21:11)
--- NOTE | 2020-01-19 21:14 | NUR ---
warm blanket given, morphine for pain Addendum: 01/19/20 at 2116 by Miriam Mc RN Amended: Links added.
[2020-01-20 00:33] VITALS: BP 120/81
[2020-01-20] MEDS: hyDRALAzine 10mg tablet PO SCH ×3 (00:36→16:47)
[2020-01-20] MEDS: HYDROcodone/acetaminophen 10/325mg tab PO PRN ×2 (00:36→14:03)
--- NOTE | 2020-01-20 02:03 | NUR ---
awake watching tv, states good pain relief, declines any other pain medication. eating hs snack. Addendum: 01/20/20 at 0203 by Miriam Mc RN Amended: Links added.
--- NOTE | 2020-01-20 03:08 | NUR ---
pt c/o nausea, abd pain, req medication, now sitting in bathroom passing large amt flatus. pt wants to wait for medication, states may have a BM. Addendum: 01/20/20 at 0309 by Miriam Mc RN Amended: Links added.
[2020-01-20] MEDS: ondansetron/PF 4mg/2ml inj IV PRN ×2 (03:10→09:32)
[2020-01-20] MEDS: morphine 2 MG/ML inj. syringe IV PRN (03:12)
[2020-01-20] MEDS: albuterol 2.5 MG/3 ML nebule NEB SCH ×6 (03:34→23:37)
--- NOTE | 2020-01-20 07:11 | NUR ---
Patient in room [facility]. I have received report from Magy VASQUEZ and had the opportunity to ask questions and assume patient care.
[2020-01-20] MEDS: budesonide 0.5mg/2ml UD nebule IH SCH ×2 (07:55→19:44)
[2020-01-20] MEDS: aspirin 81mg tablet.DR PO SCH (08:24)
[2020-01-20] MEDS: pantoprazole 40mg Tablet.DR PO SCH (08:24)
[2020-01-20] MEDS: heparin, porcine 5000 units/ml vial SQ SCH ×2 (08:24→20:33)
[2020-01-20] MEDS: simethicone 80mg chew tab PO SCH ×3 (08:24→20:33)
[2020-01-20] MEDS: furosemide 40mg tablet PO SCH ×2 (08:24→20:33)
[2020-01-20] MEDS: docusate sod 100mg capsule PO SCH ×2 (08:24→20:34)
[2020-01-20] MEDS: carvedilol 6.25mg tablet PO SCH ×2 (08:25→20:33)
[2020-01-20 10:26] VITALS: BP 120/87
[2020-01-20 11:00] VITALS: BP 126/90
[2020-01-20] MEDS: levoFLOXACIN 250mg tablet PO SCH (13:58)
--- NOTE | 2020-01-20 16:31 | NUR ---
Consult re: poor appetite, eating 25-49% average. RD visited patient at bedside. Patient is s/p PD catheter placement however will continue with HD before PD cath can be used. Patient has had poor appetite since admission along with nausea which was resolved with Zofran. Patient reports some chewing difficulty however declines any modification to food texture, did not provide food preferences to RD, and declined an oral nutrition supplement in the setting of poor PO intake. RD encouraged PO intake of food and to consider a supplement if unable to eat more. Pt provided with RD contact information and informed patient that outpatient renal RD will also be available at Dialysis clinic. Pt reports he does not feel constipated, reports that abdomen is "filled with fluid," however is receiving routine colace for bowel regularity. LBM was 01/19. Recommendations: 1) Continue heart healthy diet; monitor electrolytes and need for diet change to renal 2) Monitor need for ONS/additional protein 3) Monitor need for Phos binder; currently no phos labs 4) Bowel care PRN 5) Wt per rx Addendum: 01/20/20 at [address] Amended: Links added.
--- NOTE | 2020-01-20 18:00 | NUR ---
Patient in room [facility] 350. I have received report from Amaris VASQUEZ and had the opportunity to ask questions and assume patient care.
--- NOTE | 2020-01-20 18:11 | NUR ---
ALL cares given to patient. no dialysis today. c/o pain x1 norco given with effect. resting on bed at time of report.
--- NOTE | 2020-01-20 18:12 | NUR ---
Problems reprioritized. Patient report given, questions answered & plan of care reviewed with zohaib VASQUEZ.
[2020-01-20 20:00] VITALS: BP 107/70
[2020-01-21] VITALS: BP 119/79
[2020-01-21] MEDS: hyDRALAzine 10mg tablet PO SCH ×4 (00:01→23:56)
[2020-01-21] MEDS: ondansetron/PF 4mg/2ml inj IV PRN ×2 (01:32→23:56)
[2020-01-21] MEDS: morphine 2 MG/ML inj. syringe IV PRN (01:41)
[2020-01-21] MEDS: albuterol 2.5 MG/3 ML nebule NEB SCH ×6 (03:37→23:13)
--- NOTE | 2020-01-21 07:03 | NUR ---
Problems reprioritized. Patient report given, questions answered & plan of care reviewed with Sarah RN.
[2020-01-21 07:05] VITALS: BP 130/87
[2020-01-21] MEDS: budesonide 0.5mg/2ml UD nebule IH SCH ×2 (07:30→19:13)
[2020-01-21] MEDS: simethicone 80mg chew tab PO SCH ×3 (07:46→20:13)
[2020-01-21] MEDS: docusate sod 100mg capsule PO SCH ×2 (07:46→20:13)
[2020-01-21] MEDS: aspirin 81mg tablet.DR PO SCH (07:46)
[2020-01-21] MEDS: furosemide 40mg tablet PO SCH ×2 (07:46→20:13)
[2020-01-21] MEDS: pantoprazole 40mg Tablet.DR PO SCH (07:46)
[2020-01-21] MEDS: heparin, porcine 5000 units/ml vial SQ SCH ×2 (07:54→20:13)
[2020-01-21] MEDS: carvedilol 6.25mg tablet PO SCH ×2 (08:05→20:13)
[2020-01-21] MEDS ORDERED: heparin 1,000unit/ml 10ml vial 10 ML IV ONE (09:51)
[2020-01-21] MEDS ORDERED: albumin (human) 25% 100ml IV 100 ML IV PRN (09:55)
[2020-01-21] MEDS ORDERED: epoetin 20,000 units/ml inj IV ONE (09:55)
[2020-01-21] MEDS ORDERED: heparin 1,000 units/ml 10ml inj IV ONE (09:55)
[2020-01-21] MEDS ORDERED: heparin 1,000 units/ml 10ml inj HE ONE ×2 (09:55)
[2020-01-21 11:00] VITALS: BP 135/86
[2020-01-21] MEDS: lactulose 20gm/30ml cup PO SCH (11:38)
[2020-01-21] MEDS: levoFLOXACIN 250mg tablet PO SCH (11:38)
[2020-01-21] MEDS: methylnaltrexone br 12mg/0.6ml inj***SubQ only SQ SCH (11:39)
--- NOTE | 2020-01-21 13:35 | NUR ---
F/u: Pt continued with poor PO intake however documented to have consumed 100% of protein at dinner last night. Pending further documentation of PO intake for today. Relistor and Lactulose have been added to med list to promote bowel regularity. Will continue to follow. Consult re: poor appetite, eating 25-49% average. RD visited patient at bedside. Patient is s/p PD catheter placement however will continue with HD before PD cath can be used. Patient has had poor appetite since admission along with nausea which was resolved with Zofran. Patient reports some chewing difficulty however declines any modification to food texture, did not provide food preferences to RD, and declined an oral nutrition supplement in the setting of poor PO intake. RD encouraged PO intake of food and to consider a supplement if unable to eat more. Pt provided with RD contact information and informed patient that outpatient renal RD will also be available at Dialysis clinic. Pt reports he does not feel constipated, reports that abdomen is "filled with fluid," however is receiving routine Colace for bowel regularity. LBM was 01/19. Recommendations: 1) Continue heart healthy diet; monitor electrolytes and need for diet change to renal 2) Monitor need for ONS/additional protein; encourage PO intake 3) Monitor need for Phos binder; currently no phos labs 4) Routine bowel care 5) Wt per rx Addendum: 01/21/20 at [address] Amended: Links added.
[2020-01-21 18:00] VITALS: BP 114/77
--- NOTE | 2020-01-21 18:22 | NUR ---
Patient in room [facility] 350. I have received report from Servando VASQUEZ and had the opportunity to ask questions and assume patient care.
--- NOTE | 2020-01-21 18:30 | NUR ---
Problems reprioritized. Patient report given, questions answered & plan of care reviewed with CHRISTINA Holm.
[2020-01-21] MEDS: lactobacillus rhamnosus 10,000 MMU CELLS/CAPSULE PO SCH (20:13)
[2020-01-22] VITALS: BP 101/67
[2020-01-22] MEDS: albuterol 2.5 MG/3 ML nebule NEB SCH ×6 (03:17→23:37)
--- NOTE | 2020-01-22 06:12 | NUR ---
Problems reprioritized. Patient report given, questions answered & plan of care reviewed with Jasmyn VASQUEZ.
--- NOTE | 2020-01-22 06:38 | NUR ---
Patient in room [facility] 350. I have received report from CHRISTINA MCCOY and had the opportunity to ask questions and assume patient care.
[2020-01-22] MEDS: budesonide 0.5mg/2ml UD nebule IH SCH ×2 (07:11→19:26)
[2020-01-22 07:30] VITALS: BP 116/82
[2020-01-22] MEDS: lactulose 20gm/30ml cup PO SCH ×3 (08:04→20:00)
[2020-01-22] MEDS: simethicone 80mg chew tab PO SCH ×3 (08:05→20:14)
[2020-01-22] MEDS: pantoprazole 40mg Tablet.DR PO SCH (08:05)
[2020-01-22] MEDS: aspirin 81mg tablet.DR PO SCH (08:05)
[2020-01-22] MEDS: docusate sod 100mg capsule PO SCH ×2 (08:05→20:00)
[2020-01-22] MEDS: lactobacillus rhamnosus 10,000 MMU CELLS/CAPSULE PO SCH ×2 (08:05→20:14)
[2020-01-22] MEDS: furosemide 40mg tablet PO SCH ×2 (08:05→20:14)
[2020-01-22] MEDS: carvedilol 6.25mg tablet PO SCH ×2 (08:05→20:14)
[2020-01-22] MEDS: hyDRALAzine 10mg tablet PO SCH ×3 (08:05→23:52)
[2020-01-22] MEDS: heparin, porcine 5000 units/ml vial SQ SCH ×2 (08:06→20:14)
[2020-01-22 11:00] VITALS: BP 122/93
[2020-01-22] MEDS: levoFLOXACIN 250mg tablet PO SCH (11:10)
[2020-01-22] MEDS ORDERED: metoclopramide 5 mg/ml inj IV PRN (11:40)
--- NOTE | 2020-01-22 18:28 | NUR ---
Problems reprioritized. Patient report given, questions answered & plan of care reviewed with CHRISTINA BAEZ.
--- NOTE | 2020-01-22 18:30 | NUR ---
Patient in room [facility] 350. I have received report from ROCHELLE and had the opportunity to ask questions and assume patient care.
[2020-01-22 19:30] VITALS: BP 130/83
[2020-01-22 23:00] VITALS: BP 124/79
[2020-01-23] MEDS: lactulose 20gm/30ml cup PO SCH ×4 (02:00→20:00)
[2020-01-23] MEDS: albuterol 2.5 MG/3 ML nebule NEB SCH ×6 (03:16→23:21)
--- NOTE | 2020-01-23 06:11 | NUR ---
Problems reprioritized. Patient report given, questions answered & plan of care reviewed with ROCHELLE.
--- NOTE | 2020-01-23 06:13 | NUR ---
Patient in room [facility] 350. I have received report from CHRISTINA Rosen and had the opportunity to ask questions and assume patient care.
[2020-01-23] MEDS: budesonide 0.5mg/2ml UD nebule IH SCH ×2 (07:13→19:08)
[2020-01-23 07:22] VITALS: BP 136/92
[2020-01-23] MEDS: simethicone 80mg chew tab PO SCH ×3 (07:29→21:42)
[2020-01-23] MEDS: aspirin 81mg tablet.DR PO SCH (07:30)
[2020-01-23] MEDS: heparin, porcine 5000 units/ml vial SQ SCH ×2 (07:30→19:53)
[2020-01-23] MEDS: carvedilol 6.25mg tablet PO SCH ×2 (07:30→19:52)
[2020-01-23] MEDS: hyDRALAzine 10mg tablet PO SCH ×3 (07:30→23:45)
[2020-01-23] MEDS: pantoprazole 40mg Tablet.DR PO SCH (07:30)
[2020-01-23] MEDS: lactobacillus rhamnosus 10,000 MMU CELLS/CAPSULE PO SCH ×2 (07:31→19:52)
[2020-01-23] MEDS: furosemide 40mg tablet PO SCH ×2 (07:31→19:52)
[2020-01-23] MEDS: methylnaltrexone br 12mg/0.6ml inj***SubQ only SQ SCH (07:37)
[2020-01-23] MEDS: docusate sod 100mg capsule PO SCH ×2 (07:37→19:56)
[2020-01-23 11:00] VITALS: BP 133/84
[2020-01-23] MEDS: levoFLOXACIN 250mg tablet PO SCH (11:29)
[2020-01-23 18:00] VITALS: BP 148/98
--- NOTE | 2020-01-23 18:38 | NUR ---
Problems reprioritized. Patient report given, questions answered & plan of care reviewed with CHRISTINA CARDOZA.
[2020-01-24] VITALS: BP 133/86
[2020-01-24] MEDS: lactulose 20gm/30ml cup PO SCH ×5 (02:00→20:00)
[2020-01-24] MEDS: albuterol 2.5 MG/3 ML nebule NEB SCH ×5 (03:03→19:19)
[2020-01-24 05:29] LABS: HEMATOCRIT 30.2 % (42.0-52.0); HEMOGLOBIN 10.1 g/dl (14.0-17.9); MEAN CORPUSCULAR HEMOGLOBIN 26.2 PG (27.0-31.0); MEAN CORPUSCULAR HGB CONC 33.4 g/dL (33.0-36.5); MEAN CORPUSCULAR VOLUME 78.5 FL (78-98); MEAN PLATELET VOLUME 7.6 FL (7.4-10.4); PLATELET COUNT 246 X10'3 (140-440); RED BLOOD COUNT 3.84 X10'6 (4.70-6.10); RED CELL DISTRIBUTION WIDTH 15.9 % (11.5-14.5); WHITE BLOOD COUNT 6.3 X10'3 (4.5-11.0)
[2020-01-24 07:00] VITALS: BP 136/97
--- NOTE | 2020-01-24 07:06 | NUR ---
Patient in room [facility] 350. I have received report from Jazmine VASQUEZ and had the opportunity to ask questions and assume patient care.
[2020-01-24] MEDS: budesonide 0.5mg/2ml UD nebule IH SCH ×2 (07:07→19:19)
[2020-01-24] MEDS ORDERED: epoetin 20,000 units/ml inj IV ONE ×3 (08:00→09:35)
[2020-01-24] MEDS ORDERED: normal saline 1000ml 250 ML IV PRN ×2 (08:00→09:31)
[2020-01-24] MEDS ORDERED: heparin 1,000 units/ml 10ml inj HE ONE ×4 (08:00→09:35)
[2020-01-24] MEDS ORDERED: heparin 1,000unit/ml 10ml vial 10 ML IV ONE ×2 (08:00→09:31)
[2020-01-24] MEDS: lactobacillus rhamnosus 10,000 MMU CELLS/CAPSULE PO SCH ×2 (08:40→22:03)
[2020-01-24] MEDS: simethicone 80mg chew tab PO SCH ×3 (08:40→22:03)
[2020-01-24] MEDS: pantoprazole 40mg Tablet.DR PO SCH (08:40)
[2020-01-24] MEDS: aspirin 81mg tablet.DR PO SCH (08:40)
[2020-01-24] MEDS: docusate sod 100mg capsule PO SCH ×2 (08:40→22:02)
[2020-01-24] MEDS: heparin, porcine 5000 units/ml vial SQ SCH ×2 (08:42→22:03)
[2020-01-24] MEDS: carvedilol 6.25mg tablet PO SCH ×2 (08:53→22:03)
[2020-01-24] MEDS: hyDRALAzine 10mg tablet PO SCH ×2 (08:53→16:00)
[2020-01-24] MEDS: furosemide 40mg tablet PO SCH ×2 (08:53→22:02)
[2020-01-24 11:00] VITALS: BP 131/92
[2020-01-24 12:28] VITALS: BP 131/92
[2020-01-24] MEDS: levoFLOXACIN 250mg tablet PO SCH (13:13)
--- NOTE | 2020-01-24 17:13 | NUR ---
Held Hydralazine po due to patient going to be getting Dialysis BP 130/90
--- NOTE | 2020-01-24 18:45 | NUR ---
Problems reprioritized. Patient report given, questions answered & plan of care reviewed with Prudence RN patient getting dialysis .
--- NOTE | 2020-01-24 18:48 | NUR ---
Patient in room [facility]. I have received report from BRIANDA VASQUEZ and had the opportunity to ask questions and assume patient care.
[2020-01-24 20:00] VITALS: BP 131/88
[2020-01-25] VITALS: BP 119/81
[2020-01-25] MEDS: albuterol 2.5 MG/3 ML nebule NEB SCH ×4 (00:07→11:11)
[2020-01-25] MEDS: hyDRALAzine 10mg tablet PO SCH ×2 (00:49→07:20)
[2020-01-25] MEDS: lactulose 20gm/30ml cup PO SCH ×3 (02:00→13:28)
--- NOTE | 2020-01-25 06:31 | NUR ---
Patient in room [facility]. I have received report from CHRISTINA Lucero and had the opportunity to ask questions and assume patient care.
--- NOTE | 2020-01-25 06:42 | NUR ---
Problems reprioritized. Patient report given, questions answered & plan of care reviewed with Dominique Rahman.
[2020-01-25] MEDS: budesonide 0.5mg/2ml UD nebule IH SCH (07:07)
[2020-01-25] MEDS: lactobacillus rhamnosus 10,000 MMU CELLS/CAPSULE PO SCH (07:19)
[2020-01-25] MEDS: heparin, porcine 5000 units/ml vial SQ SCH (07:20)
[2020-01-25] MEDS: aspirin 81mg tablet.DR PO SCH (07:20)
[2020-01-25] MEDS: pantoprazole 40mg Tablet.DR PO SCH (07:20)
[2020-01-25] MEDS: carvedilol 6.25mg tablet PO SCH (07:20)
[2020-01-25] MEDS: simethicone 80mg chew tab PO SCH ×2 (07:20→13:07)
[2020-01-25] MEDS: docusate sod 100mg capsule PO SCH (07:21)
[2020-01-25] MEDS: methylnaltrexone br 12mg/0.6ml inj***SubQ only SQ SCH (07:21)
[2020-01-25] MEDS: furosemide 40mg tablet PO SCH (07:26)
[2020-01-25 08:00] VITALS: BP 130/64
[2020-01-25] MEDS ORDERED: POLY17PO10 PO (10:25)
[2020-01-25] MEDS ORDERED: CARV6.253 PO (10:25)
[2020-01-25] MEDS ORDERED: LEVO500T89 PO (10:46)
[2020-01-25 11:00] VITALS: BP 113/52
[2020-01-25] MEDS: levoFLOXACIN 250mg tablet PO SCH (11:15)
--- NOTE | 2020-01-25 11:18 | NUR ---
Reassessment: Pt with significant improvement in PO intake, now averaging 75-100% likely meeting nutrient needs. LBM 01/24. No nutrition intervention warranted at this time. Will continue to follow. Recommendations: 1) Continue heart healthy diet; monitor electrolytes and need for diet change to renal 2) Monitor need for ONS/additional protein; encourage PO intake 3) Monitor need for Phos binder; currently no phos labs 4) Routine bowel care 5) Wt per rx Addendum: 01/25/20 at [address] Amended: Links added.
--- NOTE | 2020-01-25 13:23 | NUR ---
Discharge instructions reviewed and signed by pt. Medications reviewed and new prescriptions e-scripted to Joanna Fuchs Dr. Pt instructed to follow up with hemodialysis appointment at 1500 with [facility], and to follow up with PCP in 1 week. IV DC'd, cannula intact. Pt's ride is en route from [place], [place] per case management. Will continue to monitor.
--- NOTE | 2020-01-25 15:01 | NUR ---
pt escorted to front lobby via wheelchair with all belongings.
== END 2020-01-25 14:58 | disposition home or self-care (01) | DRG 674 ==
LOC: ER 06:33 → ED HOLD 08:30 → EDBEDREQTM 09:11 → SUR 3N 09:43
PROVIDERS: ADMIT Internal Medicine; ATTEND Family Medicine
PROC: 0JH63XZ Insertion of Tunneled Vascular Access Device into Chest Subcutaneous Tissue and Fascia, Percutaneous Approach (ICD-10-PCS; principal; 2020-01-16)
PROC: 02HV33Z Insertion of Infusion Device into Superior Vena Cava, Percutaneous Approach (ICD-10-PCS; 2020-01-16)
PROC: B548ZZA Ultrasonography of Superior Vena Cava, Guidance (ICD-10-PCS; 2020-01-16)
PROC: 5A1D70Z Performance of Urinary Filtration, Intermittent, Less than 6 Hours Per Day (ICD-10-PCS; 2020-01-16)
PROC: B5181ZA Fluoroscopy of Superior Vena Cava using Low Osmolar Contrast, Guidance (ICD-10-PCS; 2020-01-16)
PROC: 5A1D70Z Performance of Urinary Filtration, Intermittent, Less than 6 Hours Per Day (ICD-10-PCS; 2020-01-17)
PROC: 0WHG43Z Insertion of Infusion Device into Peritoneal Cavity, Percutaneous Endoscopic Approach (ICD-10-PCS; 2020-01-18)
PROC: 5A1D70Z Performance of Urinary Filtration, Intermittent, Less than 6 Hours Per Day (ICD-10-PCS; 2020-01-19)
PROC: 5A1D70Z Performance of Urinary Filtration, Intermittent, Less than 6 Hours Per Day (ICD-10-PCS; 2020-01-21)
PROC: 5A1D70Z Performance of Urinary Filtration, Intermittent, Less than 6 Hours Per Day (ICD-10-PCS; 2020-01-24)
DX: N17.9 Acute kidney failure, unspecified (principal); Q61.3 Polycystic kidney, unspecified; I50.22 Chronic systolic (congestive) heart failure; I13.0 Hypertensive heart and chronic kidney disease with heart failure and stage 1 through stage 4 chronic kidney disease, or unspecified chronic kidney disease; I25.10 Atherosclerotic heart disease of native coronary artery without angina pectoris; J44.9 Chronic obstructive pulmonary disease, unspecified; F19.11 Other psychoactive substance abuse, in remission; D63.8 Anemia in other chronic diseases classified elsewhere; N18.5 Chronic kidney disease, stage 5; I25.2 Old myocardial infarction; Z95.5 Presence of coronary angioplasty implant and graft; Z87.891 Personal history of nicotine dependence
CPT/HCPCS: 36415; 71045; 80048; 80053; 81001; 82948; 85025; 85027; 85610; 87070; 87075; 87081; 87340; 93005; 93306; 94640; 94760; 97110; 97116; 97161; 97530; 99285; A4215; A4618; A6449; C1750; C1769; C1894; G0257; G0378; J0690; J1642; J1644; J1940; J2150; J2212; J2250; J2270; J2405; J2704; J2710; J2765; J3010; J3490; J7030; J7626; Q4081

== ENCOUNTER 2020-04-19 11:20 | Day surgery (SDC) | payer MEDICARE, MEDICAID ==
[~2020-04-19] VITALS: Ht 167.6 cm; Wt 63.5 kg
[~2020-04-19 11:20] MED LIST changes: +CALC667C5 PO; -DILT-36 PO; +DILT180C53 PO; +FURO80TA3 PO; +IPRA3AMP31 INH; -IPRA3AMP9 NEB; +albuterol 2.5 MG/3 ML nebule NEB ONE; +cefazolin/dext.iso 2gm/50ml 50 ML IV ONE; +famotidine 20mg tablet PO ONE; +ringers solution, lacted 1,000 ML IV SCH
[2020-04-19 11:35] VITALS: BP 133/95
[2020-04-19] MEDS ORDERED: ringers solution, lacted 1,000 ML IV SCH (12:42)
[2020-04-19] MEDS ORDERED: enalaprilat dihydrate 2.5mg/2ml vial IV PRN (12:45)
[2020-04-19] MEDS ORDERED: morphine 2 MG/ML inj. syringe IV PRN (12:45)
[2020-04-19] MEDS ORDERED: fentaNYL/PF 50MCG/1 ML 2ML syringe IV PRN ×2 (12:45)
[2020-04-19] MEDS ORDERED: ondansetron/PF 4mg/2ml inj IV PRN (12:45)
[2020-04-19] MEDS ORDERED: hydrALAZINE 20mg/ml inj. IV PRN (12:45)
[2020-04-19] MEDS ORDERED: morphine 4 MG/ML inj SYRINge IV PRN (12:45)
[2020-04-19] MEDS ORDERED: fentaNYL/PF 50MCG/1 ML 2ML syringe ONE (12:47)
[2020-04-19] MEDS ORDERED: midazolam 2 mg/2 ml injection ONE (12:48)
[2020-04-19] MEDS ORDERED: heparin 10,000 units/1 ML INJ ONE (12:48)
[2020-04-19] MEDS ORDERED: BUPIVAcaine/PF 2.5mg/ml (0.25%) 10ml vial ONE (12:48)
[2020-04-19] MEDS ORDERED: dexamethasone sod phosphate 10mg/ml inj ONE (13:04)
[2020-04-19] MEDS ORDERED: etomidate 2mg/ml inj. ONE (13:04)
[2020-04-19] MEDS ORDERED: sevoflurane 250ml liquid IH ONE (13:04)
[2020-04-19] MEDS ORDERED: rocuronium 10mg/ml inj IV ONE (13:04)
[2020-04-19] MEDS ORDERED: ondansetron/PF 4mg/2ml inj ONE (13:04)
[2020-04-19 13:20] LABS: ISTAT HGB 13.3 g/dl (14.0-18.0); ISTAT IONIZED CALCIUM 1.14 mmol/L (1.03-1.32); ISTAT K 4.8 mmol/L (3.5-5.1); POC BUN/CREATININE RATIO 6.2 (5.4-32.0)
[2020-04-19 14:20] VITALS: BP 135/93
[2020-04-19 14:30] VITALS: BP 138/86
[2020-04-19 14:40] VITALS: BP 132/90
[2020-04-19 14:50] VITALS: BP 141/89
[2020-04-19 15:00] VITALS: BP 144/88
--- NOTE | 2020-04-19 15:00 | NUR ---
PATIENT A&OX4, DENIES PAIN, V/S WNL, NEUROVASCULAR CHECKS INTACT, 20G PIV RUE D/C, SCD OFF, DRESSING TO RIGHT LEFT CDI AND ABDOMEN DRESSING CDI AND HD CATH TO RIGHT CHEST CDI. I HAVE REVIEWED D/C INSTRUCTIONS WITH PATIENT AND FAMILY AND THEY HAVE VERBALIZED UNDERSTANDING. PATIENT D/C HOME WITH ALL BELONGINGS AND FAMILY GAVE TRANSPORT HOMR
== END 2020-04-19 15:00 | disposition home or self-care (01) ==
LOC: PAS 11:20
PROVIDERS: ATTEND Surgery
DX: I13.2 Hypertensive heart and chronic kidney disease with heart failure and with stage 5 chronic kidney disease, or end stage renal disease (principal); N18.6 End stage renal disease; I50.22 Chronic systolic (congestive) heart failure; K21.9 Gastro-esophageal reflux disease without esophagitis; J43.9 Emphysema, unspecified; Z87.891 Personal history of nicotine dependence; Z98.890 Other specified postprocedural states; Z99.2 Dependence on renal dialysis; Z95.5 Presence of coronary angioplasty implant and graft; Z79.899 Other long term (current) drug therapy; Z11.59 Encounter for screening for other viral diseases
CPT/HCPCS: 36415; 36589; 36821; 80047; J1100; J1644; J2250; J2405; J3010; J3490; J7040; J7120; U0003; A4215; A4618; A6449; A7000

== ENCOUNTER 2020-07-05 08:19 | Day surgery (SDC) | payer MEDICARE, MEDICAID ==
[~2020-07-05] VITALS: Ht 167.6 cm; Wt 63.7 kg
[~2020-07-05 08:19] MED LIST changes: -albuterol 2.5 MG/3 ML nebule NEB ONE; -cefazolin/dext.iso 2gm/50ml 50 ML IV ONE; -famotidine 20mg tablet PO ONE; -ringers solution, lacted 1,000 ML IV SCH
[2020-07-05] MEDS ORDERED: normal saline 1000ml 1,000 ML IV SCH (08:50)
[2020-07-05] MEDS ORDERED: CARV6.253 PO (08:55)
[2020-07-05] MEDS ORDERED: BENA10TA74 PO (08:55)
[2020-07-05] MEDS ORDERED: VIT1TABL50 PO (08:55)
[2020-07-05] MEDS ORDERED: SEVE800T28 PO (08:55)
[2020-07-05] MEDS ORDERED: TIOT18CA3 (08:55)
[2020-07-05 09:19] VITALS: BP 108/63
[2020-07-05] MEDS ORDERED: midazolam 2 mg/2 ml injection ONE ×2 (10:09→11:20)
[2020-07-05] MEDS ORDERED: LIDOcaine 1%/PF 5ML 10 MG/ML VIAL ONE (10:09)
[2020-07-05] MEDS ORDERED: iohexol 300mg/ml 100ml inj. ONE ×2 (10:10→11:45)
[2020-07-05] MEDS ORDERED: heparin 1,000 UNITS/NS 500ml 500 ML ONE ×2 (10:10→12:26)
[2020-07-05] MEDS ORDERED: fentaNYL/PF 50MCG/1 ML 2ML syringe ONE ×2 (10:10→11:21)
[2020-07-05] MEDS ORDERED: heparin 1,000unit/ml 10ml vial 10 ML ONE (11:30)
[2020-07-05 12:45] VITALS: BP 102/73
[2020-07-05 13:00] VITALS: BP 112/82
[2020-07-05 13:15] VITALS: BP 105/76
[2020-07-05 13:30] VITALS: BP 105/67
[2020-07-05] MEDS ORDERED: clindamycin 600mg/D5W 50ml 50 ML IV ONE (13:46)
[2020-07-05 14:00] VITALS: BP 101/71
== END 2020-07-05 14:30 | disposition home or self-care (01) ==
LOC: SSTAY O 08:19
PROVIDERS: ATTEND Radiology Vascular & Interventional Radiology
DX: T82.858A Stenosis of other vascular prosthetic devices, implants and grafts, initial encounter (principal); N18.6 End stage renal disease; Z98.890 Other specified postprocedural states; Z79.899 Other long term (current) drug therapy; Z72.89 Other problems related to lifestyle; Y83.2 Surgical operation with anastomosis, bypass or graft as the cause of abnormal reaction of the patient, or of later complication, without mention of misadventure at the time of the procedure; Y92.89 Other specified places as the place of occurrence of the external cause
CPT/HCPCS: 36902; 76937; 99152; 99153; C1725; C1769; C1894; J1644; J2250; J3010; Q9967; J3490

== ENCOUNTER 2021-05-30 06:40 | Day surgery (SDC) | payer MEDICARE, MEDICAID ==
[~2021-05-30] VITALS: Ht 167.6 cm; Wt 62.5 kg
[~2021-05-30 06:40] MED LIST changes: +BENA10TA74 PO; -CALC667C5 PO; +CARV6.253 PO; -DILT180C53 PO; -FURO40TA4 PO; +SEVE800T28 PO; +TIOT18CA3; +VIT1TABL50 PO
[2021-05-30] MEDS ORDERED: normal saline 1000ml 1,000 ML IV SCH (07:10)
[2021-05-30 07:38] LABS: BASOPHILS # (AUTO) 0.1 X10'3 (0-0.2); BASOPHILS % (AUTO) 0.6 % (0-1); EOSINOPHILS # (AUTO) 0.2 X10'3 (0-0.9); EOSINOPHILS % (AUTO) 1.9 % (0-6); HEMATOCRIT 38.7 % (42.0-52.0); HEMOGLOBIN 12.9 g/dl (14.0-17.9); LYMPHOCYTES # (AUTO) 1.3 X10'3 (1.1-4.8); LYMPHOCYTES % (AUTO) 15.2 % (21-51); MEAN CORPUSCULAR HEMOGLOBIN 31.9 PG (27.0-31.0); MEAN CORPUSCULAR HGB CONC 33.3 g/dL (33.0-36.5); MEAN CORPUSCULAR VOLUME 95.7 FL (78-98); MONOCYTES # (AUTO) 0.7 X10'3 (0-0.9); MONOCYTES % (AUTO) 8.5 % (2-12); NEUTROPHILS # (AUTO) 6.2 X10'3 (1.8-7.7); NEUTROPHILS % (AUTO) 73.8 % (42-75); PLATELET COUNT 198 X10'3 (140-440); RED BLOOD COUNT 4.04 X10'6 (4.70-6.10); WHITE BLOOD COUNT 8.4 X10'3 (4.5-11.0)
[2021-05-30 07:41] LABS: ALBUMIN 4.3 G/DL (3.4-5.0); ANION GAP 16 (8-16); BLOOD UREA NITROGEN 76 MG/DL (7-18); BUN/CREATININE RATIO 6.9 (5.4-32.0); CALCIUM 8.8 MG/DL (8.5-10.1); CHLORIDE 99 MMOL/L (99-107); CREATININE 11.07 MG/DL (0.60-1.10); GLUCOSE 84 MG/DL (70-104); POTASSIUM 5.5 MMOL/L (3.5-5.1); SODIUM 139 MMOL/L (135-145); TOTAL CARBON DIOXIDE 23.8 MMOL/L (24-32); eGFR 5 ML/MIN
[2021-05-30 08:00] VITALS: BP 157/97
[2021-05-30] MEDS ORDERED: [UNRECOGNIZED DRUG - CODE] IV (08:21)
[2021-05-30] MEDS ORDERED: DOXE2VIA IV (08:21)
[2021-05-30] MEDS ORDERED: CINA60TA PO (08:21)
[2021-05-30] MEDS ORDERED: CALC667T6 PO (08:21)
[2021-05-30] MEDS ORDERED: midazolam 1 mg/ML 2ml injection ONE (09:04)
[2021-05-30] MEDS ORDERED: iohexol 300mg/ml 100ml inj. ONE (09:05)
[2021-05-30] MEDS ORDERED: LIDOcaine 1%/PF 5ML 10 MG/ML VIAL ONE (09:05)
[2021-05-30] MEDS ORDERED: fentaNYL/PF 50MCG/1 ML 2ML syringe ONE (09:05)
[2021-05-30] MEDS ORDERED: heparin 1,000 UNITS/NS 500ml 500 ML ONE (09:05)
[2021-05-30] MEDS ORDERED: heparin 1,000unit/ml 10ml vial 10 ML ONE (09:22)
[2021-05-30 10:10] VITALS: BP 156/90
[2021-05-30 10:16] VITALS: BP 174/94
[2021-05-30 10:31] VITALS: BP 170/94
[2021-05-30 10:48] VITALS: BP 142/105
[2021-05-30 11:00] VITALS: BP 143/73
== END 2021-05-30 12:05 | disposition home or self-care (01) ==
LOC: SSTAY O 06:40
PROVIDERS: ATTEND Radiology Diagnostic Radiology
DX: T82.858A Stenosis of other vascular prosthetic devices, implants and grafts, initial encounter (principal); I12.0 Hypertensive chronic kidney disease with stage 5 chronic kidney disease or end stage renal disease; N18.6 End stage renal disease; R06.01 Orthopnea; Z79.899 Other long term (current) drug therapy; Z79.82 Long term (current) use of aspirin; Z88.8 Allergy status to other drugs, medicaments and biological substances; Z79.01 Long term (current) use of anticoagulants; Z95.5 Presence of coronary angioplasty implant and graft; Y83.2 Surgical operation with anastomosis, bypass or graft as the cause of abnormal reaction of the patient, or of later complication, without mention of misadventure at the time of the procedure; Y92.89 Other specified places as the place of occurrence of the external cause
CPT/HCPCS: 36415; 36558; 76937; 77001; 80048; 85025; 85610; C1750; C1769; C1894; J1644; J2250; J3010; Q9967; A9270

== ENCOUNTER 2021-06-25 08:47 | Day surgery (SDC) | payer MEDICARE, MEDICAID ==
[~2021-06-25] VITALS: Ht 167.6 cm; Wt 62.4 kg
[~2021-06-25 08:47] MED LIST changes: +CALC667T6 PO; +CINA60TA PO; +DOXE2VIA IV; -SEVE800T28 PO; -TIOT18CA3; -VIT1TABL50 PO; +[UNRECOGNIZED DRUG - CODE] IV
[2021-06-25 09:14] VITALS: BP 138/88
[2021-06-25] MEDS ORDERED: normal saline 1000ml 1,000 ML IV SCH (09:30)
[2021-06-25 09:40] LABS: BASOPHILS % (AUTO) 0.9 % (0-1); EOSINOPHILS # (AUTO) 0.2 X10'3 (0-0.9); EOSINOPHILS % (AUTO) 3.7 % (0-6); HEMATOCRIT 36.7 % (42.0-52.0); HEMOGLOBIN 12.4 g/dl (14.0-17.9); LYMPHOCYTES # (AUTO) 1.4 X10'3 (1.1-4.8); LYMPHOCYTES % (AUTO) 25.8 % (21-51); MEAN CORPUSCULAR HEMOGLOBIN 32.1 PG (27.0-31.0); MEAN CORPUSCULAR HGB CONC 33.6 g/dL (33.0-36.5); MEAN CORPUSCULAR VOLUME 95.3 FL (78-98); MONOCYTES # (AUTO) 0.7 X10'3 (0-0.9); MONOCYTES % (AUTO) 12.8 % (2-12); NEUTROPHILS # (AUTO) 3.1 X10'3 (1.8-7.7); NEUTROPHILS % (AUTO) 56.8 % (42-75); PLATELET COUNT 193 X10'3 (140-440); RED BLOOD COUNT 3.85 X10'6 (4.70-6.10); RED CELL DISTRIBUTION WIDTH 14.1 % (11.5-14.5); WHITE BLOOD COUNT 5.5 X10'3 (4.5-11.0)
[2021-06-25 09:46] LABS: ANION GAP 13 (8-16); BLOOD UREA NITROGEN 56 MG/DL (7-18); BUN/CREATININE RATIO 7.1 (5.4-32.0); CALCIUM 8.2 MG/DL (8.5-10.1); CHLORIDE 99 MMOL/L (99-107); CREATININE 7.94 MG/DL (0.60-1.10); GLUCOSE 83 MG/DL (70-104); POTASSIUM 4.9 MMOL/L (3.5-5.1); SODIUM 141 MMOL/L (135-145); TOTAL CARBON DIOXIDE 28.9 MMOL/L (24-32); eGFR 7 ML/MIN
[2021-06-25] MEDS ORDERED: fentaNYL/PF 50MCG/1 ML 2ML syringe ONE ×2 (10:06→11:17)
[2021-06-25] MEDS ORDERED: midazolam 1 mg/ML 2ml injection ONE ×2 (10:06→11:17)
[2021-06-25] MEDS ORDERED: LIDOcaine 1%/PF 5ML 10 MG/ML VIAL ONE (10:06)
[2021-06-25] MEDS ORDERED: iohexol 300mg/ml 100ml inj. ONE (10:07)
[2021-06-25] MEDS ORDERED: heparin 1,000 UNITS/NS 500ml 500 ML ONE ×2 (10:07→12:00)
[2021-06-25] MEDS ORDERED: tPA-cathflo 2 MG/2 ml IV flush ONE (11:47)
[2021-06-25 12:49] VITALS: BP 138/84
[2021-06-25 13:01] VITALS: BP 144/90
[2021-06-25 13:16] VITALS: BP 138/71
[2021-06-25 13:39] VITALS: BP 118/70
[2021-06-25 13:45] VITALS: BP 117/68
== END 2021-06-25 14:07 | disposition home or self-care (01) ==
LOC: SSTAY O 08:47
PROVIDERS: ATTEND Radiology Diagnostic Radiology
DX: T82.868A Thrombosis due to vascular prosthetic devices, implants and grafts, initial encounter (principal); I12.0 Hypertensive chronic kidney disease with stage 5 chronic kidney disease or end stage renal disease; N18.6 End stage renal disease; Z87.891 Personal history of nicotine dependence; Z98.890 Other specified postprocedural states; Z95.5 Presence of coronary angioplasty implant and graft; Y83.2 Surgical operation with anastomosis, bypass or graft as the cause of abnormal reaction of the patient, or of later complication, without mention of misadventure at the time of the procedure; Y92.89 Other specified places as the place of occurrence of the external cause
CPT/HCPCS: 36415; 36905; 80048; 85025; 85610; 99152; 99153; C1725; C1769; C1894; J1644; J2250; J2997; J3010; Q9967

== ENCOUNTER 2021-08-22 13:39 | Inpatient (IN) | payer MEDICARE, MEDICAID ==
[~2021-08-22] VITALS: Ht 167.6 cm; Wt 63.5 kg
[2021-08-22] VITALS (7 sets, daily range): BP systolic 124–153; BP diastolic 66–102
[~2021-08-22 13:39] MED LIST changes: -ASPI81TA52 PO; -CINA60TA PO; -DOXE2VIA IV; -[UNRECOGNIZED DRUG - CODE] IV
[2021-08-22] MEDS ORDERED: nitroGLYCERIN 0.4mg SUBLingual tab SL PRN ×2 (14:05→15:40)
[2021-08-22] MEDS ORDERED: diphenhydrAMINE 25mg capsule PO PRN (14:05)
[2021-08-22] MEDS ORDERED: LORazepam 0.5 MG tablet PO PRN (14:05)
[2021-08-22] MEDS ORDERED: NITR0.4T51 SL (14:06)
[2021-08-22] MEDS ORDERED: ONDA4TAB6 PO (14:06)
[2021-08-22] MEDS: normal saline 1,000 ML IV SCH (14:12)
[2021-08-22 14:22] LABS: BASOPHILS # (AUTO) 0.1 X10'3 (0-0.2); BASOPHILS % (AUTO) 0.9 % (0-1); EOSINOPHILS # (AUTO) 0.2 X10'3 (0-0.9); EOSINOPHILS % (AUTO) 2.5 % (0-6); HEMATOCRIT 37.8 % (42.0-52.0); HEMOGLOBIN 12.6 g/dl (14.0-17.9); LYMPHOCYTES # (AUTO) 1.5 X10'3 (1.1-4.8); LYMPHOCYTES % (AUTO) 20.2 % (21-51); MEAN CORPUSCULAR HEMOGLOBIN 31.1 PG (27.0-31.0); MEAN CORPUSCULAR HGB CONC 33.2 g/dL (33.0-36.5); MEAN CORPUSCULAR VOLUME 93.8 FL (78-98); MONOCYTES # (AUTO) 0.7 X10'3 (0-0.9); MONOCYTES % (AUTO) 8.9 % (2-12); NEUTROPHILS # (AUTO) 5.1 X10'3 (1.8-7.7); NEUTROPHILS % (AUTO) 67.5 % (42-75); PLATELET COUNT 206 X10'3 (140-440); RED BLOOD COUNT 4.04 X10'6 (4.70-6.10); RED CELL DISTRIBUTION WIDTH 14.3 % (11.5-14.5); WHITE BLOOD COUNT 7.5 X10'3 (4.5-11.0)
[2021-08-22 14:32] LABS: ALBUMIN 3.6 G/DL (3.4-5.0); ANION GAP 16 (8-16); BLOOD UREA NITROGEN 58 MG/DL (7-18); BUN/CREATININE RATIO 7.4 (5.4-32.0); CALCIUM 8.4 MG/DL (8.5-10.1); CHLORIDE 98 MMOL/L (99-107); CREATININE 7.82 MG/DL (0.60-1.10); GLUCOSE 82 MG/DL (70-104); SODIUM 141 MMOL/L (135-145); TOTAL CARBON DIOXIDE 26.8 MMOL/L (24-32); eGFR 7 ML/MIN
[2021-08-22 14:35] LABS: PARTIAL THROMBOPLASTIN TIME 29 SECONDS (22-32)
[2021-08-22] MEDS ORDERED: nitroGLYCERIN-Tridil 50MG/D5W 250 ML IV ONE (15:07)
[2021-08-22] MEDS ORDERED: fentaNYL/PF 50MCG/1 ML 2ML syringe ONE (15:07)
[2021-08-22] MEDS ORDERED: iohexol 350MG/ML 100ml bottle IV ONE ×2 (15:08→15:11)
[2021-08-22] MEDS ORDERED: iohexol 350 MG/ML 50ML vial IV ONE (15:08)
[2021-08-22] MEDS ORDERED: midazolam 1 mg/ML 2ml injection ONE (15:08)
[2021-08-22] MEDS ORDERED: LIDOcaine 1% (10mg/ml)w/preservative injection 20ml MDV ONE (15:08)
[2021-08-22] MEDS ORDERED: ondansetron/PF 4mg/2ml inj IV PRN ×2 (15:20→17:10)
[2021-08-22] MEDS ORDERED: PERFLUTREN PROTEIN-A MICROSPHR (Optison) 0.22 MG/ML 3ML VIAL IV ONE (15:20)
[2021-08-22] MEDS ORDERED: HYDROcodone/acetaminophen 5mg/325mg tablet PO PRN ×2 (15:20→17:15)
[2021-08-22] MEDS ORDERED: morphine 2 MG/ML inj. syringe IV PRN ×2 (15:20)
[2021-08-22] MEDS ORDERED: HYDROcodone/acetaminophen 10/325mg tab PO PRN ×2 (15:20→17:15)
[2021-08-22] MEDS ORDERED: acetaminophen 325mg tablet PO PRN ×2 (15:20)
[2021-08-22] MEDS ORDERED: normal saline 1000ml 1,000 ML IV SCH ×2 (15:20→17:10)
--- NOTE | 2021-08-22 15:25 | NUR ---
Patient picked up from Angio heading to get angiogram done, will go to room 3024 B once procedure is through.
[2021-08-22] MEDS ORDERED: ipratropium/albuterol 3ml nebule NEB PRN (15:40)
[2021-08-22] MEDS ORDERED: non-formulary drug (Ondansetron Hcl (Zofran) 1 TAB) PO PRN (15:40)
[2021-08-22] MEDS ORDERED: BENA20TA10 PO (15:42)
[2021-08-22 16:29] LABS: ISTAT HGB ART 11.2 g/dl (14.0-18.0); ISTAT Hct ART 33 %PCV (42-52); ISTAT O2 SATURATION ARTERIAL 100 % (95-98); ISTAT SOURCE ART
--- NOTE | 2021-08-22 16:40 | NUR ---
Patient in room PCU 3024. I have received report from CHRISTINA CHARLES, and had the opportunity to ask questions and assume patient care.
[2021-08-22] MEDS ORDERED: proCHLORperazine 10 MG/2 ml inj IV PRN (17:15)
[2021-08-22] MEDS ORDERED: OXAZEpam 15mg capsule PO PRN (17:15)
[2021-08-22 18:39] LABS: ALANINE AMINOTRANSFERASE 15 U/L (12-78); ALBUMIN 3.6 G/DL (3.4-5.0); ALKALINE PHOSPHATASE 79 IU/L (46-116); ANION GAP 13 (8-16); ASPARTATE AMINO TRANSFERASE 10 U/L (10-37); BILIRUBIN,TOTAL 0.5 MG/DL (0.1-1.0); BLOOD UREA NITROGEN 60 MG/DL (7-18); BUN/CREATININE RATIO 7.6 (5.4-32.0); CHLORIDE 97 MMOL/L (99-107); CREATININE 7.89 MG/DL (0.60-1.10); GLUCOSE 79 MG/DL (70-104); MAGNESIUM 1.9 MG/DL (1.5-2.4); SODIUM 139 MMOL/L (135-145); TOTAL PROTEIN 7.2 G/DL (6.4-8.2); eGFR 7 ML/MIN
--- NOTE | 2021-08-22 18:58 | NUR ---
POST PROCEDURAL VITAL SIGNS WERE INTERRUPTED DUE TO LABS BEING DRAWN AND ULTRA SOUND. PEDAL PULSES AND GROIN DRESSING WERE ASSESSED.
--- NOTE | 2021-08-22 19:00 | NUR ---
Problems reprioritized. Patient report given, questions answered & plan of care reviewed with CHRISTINA CERNA.
--- NOTE | 2021-08-22 19:00 | NUR ---
Abnormal k+ 6.[address] Beckwith.[address] Beckwith states he can't action since patient is on dialysis. Charge nurse informed. Will pass on information to day shift nurse. Patient is stable and remains on Bed rest. All safety measures in place. Will continue to monitor patient.
[2021-08-22] MEDS: carvedilol 6.25mg tablet PO SCH (19:45)
[2021-08-22] MEDS: furosemide 20MG tablet PO SCH (19:45)
--- NOTE | 2021-08-22 19:56 | NUR ---
patient stable. VS documented. Meds given. Teach patient about call light use and bed rest post cardiac cath. All safety measures implemented. Will continue monitor.
[2021-08-22] MEDS ORDERED: heparin, porcine 5000 units/ml vial SQ SCH (20:00)
[2021-08-22] MEDS ORDERED: temazepam 15mg capsule PO PRN (21:00)
[2021-08-22] MEDS: calcium acetate 667mg (phosLO) tablet PO SCH (21:00)
[2021-08-23] MEDS: normal saline 1,000 ML IV SCH (00:05)
[2021-08-23 02:00] VITALS: BP 117/71
[2021-08-23 06:00] VITALS: BP 148/89
--- NOTE | 2021-08-23 06:42 | NUR ---
Patient in room PCU 3024. I have received report from CHRISTINA Mckeon, and had the opportunity to ask questions and assume patient care.
[2021-08-23 07:27] LABS: BASOPHILS % (AUTO) 0.7 % (0-1); EOSINOPHILS # (AUTO) 0.1 X10'3 (0-0.9); EOSINOPHILS % (AUTO) 2.2 % (0-6); HEMATOCRIT 33.1 % (42.0-52.0); HEMOGLOBIN 11.2 g/dl (14.0-17.9); LYMPHOCYTES # (AUTO) 1.1 X10'3 (1.1-4.8); LYMPHOCYTES % (AUTO) 17.2 % (21-51); MEAN CORPUSCULAR HEMOGLOBIN 31.6 PG (27.0-31.0); MEAN CORPUSCULAR HGB CONC 33.9 g/dL (33.0-36.5); MEAN CORPUSCULAR VOLUME 93.2 FL (78-98); MEAN PLATELET VOLUME 8.2 FL (7.4-10.4); MONOCYTES # (AUTO) 0.6 X10'3 (0-0.9); MONOCYTES % (AUTO) 8.9 % (2-12); NEUTROPHILS # (AUTO) 4.5 X10'3 (1.8-7.7); PLATELET COUNT 166 X10'3 (140-440); RED BLOOD COUNT 3.55 X10'6 (4.70-6.10); WHITE BLOOD COUNT 6.3 X10'3 (4.5-11.0)
[2021-08-23 07:43] LABS: ALANINE AMINOTRANSFERASE 14 U/L (12-78); ALBUMIN 3.4 G/DL (3.4-5.0); ALKALINE PHOSPHATASE 75 IU/L (46-116); ANION GAP 17 (8-16); ASPARTATE AMINO TRANSFERASE 6 U/L (10-37); BILIRUBIN,TOTAL 0.5 MG/DL (0.1-1.0); BLOOD UREA NITROGEN 62 MG/DL (7-18); BUN/CREATININE RATIO 7.1 (5.4-32.0); CALCIUM 7.8 MG/DL (8.5-10.1); CHLORIDE 99 MMOL/L (99-107); CHOLESTEROL 206 MG/DL (0-200); CREATININE 8.76 MG/DL (0.60-1.10); GLUCOSE 79 MG/DL (70-104); SODIUM 141 MMOL/L (135-145); TOTAL CARBON DIOXIDE 24.9 MMOL/L (24-32); TOTAL PROTEIN 6.7 G/DL (6.4-8.2); eGFR 6 ML/MIN
[2021-08-23 07:44] LABS: CHOL/HDL RATIO 7.1 (0.00-4.99); HDL CHOLESTEROL 29 MG/DL (35-60); LDL CHOLESTEROL 123 MG/DL (50-100); TRIGLYCERIDES 197 MG/DL (20-135)
[2021-08-23 07:48] LABS: POTASSIUM 6.1 MMOL/L (3.5-5.1)
[2021-08-23] MEDS ORDERED: lisinopril 20mg tablet PO SCH (08:00)
[2021-08-23] MEDS ORDERED: pantoprazole 40mg Tablet.DR PO SCH (08:00)
[2021-08-23] MEDS ORDERED: EPOETIN ALFA-EPBX 20,000 UNIT/ML 1 ML MDV IV ONE (08:00)
[2021-08-23] MEDS ORDERED: albumin (human) 25% 100ml IV 100 ML IV PRN (08:00)
[2021-08-23] MEDS ORDERED: heparin 1,000 units/ml 10ml inj IV ONE (08:00)
[2021-08-23] MEDS ORDERED: heparin 1,000unit/ml 10ml vial 10 ML IV ONE (08:00)
[2021-08-23] MEDS ORDERED: heparin 1,000 units/ml 10ml inj HE ONE ×2 (08:00)
--- NOTE | 2021-08-23 08:02 | NUR ---
SENT PAGE PAGER ID: [phone] MESSAGE: [id number], JAYLON TAN, CRITICAL LAB K- 6.1. THANK YOU, CLAUDIA
[2021-08-23] MEDS: carvedilol 6.25mg tablet PO SCH (08:07)
[2021-08-23] MEDS: furosemide 20MG tablet PO SCH (08:08)
[2021-08-23] MEDS: calcium acetate 667mg (phosLO) tablet PO SCH (08:11)
--- NOTE | 2021-08-23 09:10 | NUR ---
Malnutrition consult: Pt reports 2-13 lb wt loss with decreased appetite per malnutrition risk screen with RN. Pt currently on a renal diet, pending documentation of PO intake. Current documented wt isn't scaled however is stable with scaled wt hx from 04/19/2020-06/25/2021 with range of 62.4-63.7 kg. Pt with no documented decrease in muscle strength or edema. Pt currently lacks a minimum of two criteria for malnutrition. Of note pt with ESRD on dialysis, wt likely to fluctuate d/t changes in fluid status. Addendum: 08/23/21 at [address] Amended: Links added.
[2021-08-23 11:00] VITALS: BP 151/95
[2021-08-23] MEDS ORDERED: calcium acetate 667mg (PhosLO) capsule PO SCH (13:00)
[2021-08-26 06:08] LABS: ISTAT Hct MIX 31 %PCV (42-52); ISTAT O2 SATURATION MIX VENOUS 73 % (60-80); ISTAT SOURCE VEN
== END 2021-08-23 15:18 | disposition left against medical advice (07) | DRG 286 ==
LOC: SSTAY O 13:39 → PCU 3S 14:33
PROVIDERS: ADMIT Internal Medicine; ATTEND Internal Medicine Cardiovascular Disease
PROC: 4A023N8 Measurement of Cardiac Sampling and Pressure, Bilateral, Percutaneous Approach (ICD-10-PCS; principal; 2021-08-22)
PROC: B2111ZZ Fluoroscopy of Multiple Coronary Arteries using Low Osmolar Contrast (ICD-10-PCS; 2021-08-22)
PROC: B2151ZZ Fluoroscopy of Left Heart using Low Osmolar Contrast (ICD-10-PCS; 2021-08-22)
DX: T82.858A Stenosis of other vascular prosthetic devices, implants and grafts, initial encounter (principal); N18.6 End stage renal disease; Q61.3 Polycystic kidney, unspecified; R94.39 Abnormal result of other cardiovascular function study; I25.10 Atherosclerotic heart disease of native coronary artery without angina pectoris; J44.9 Chronic obstructive pulmonary disease, unspecified; E87.5 Hyperkalemia; Z66 Do not resuscitate; Z53.29 Procedure and treatment not carried out because of patient's decision for other reasons; Y83.8 Other surgical procedures as the cause of abnormal reaction of the patient, or of later complication, without mention of misadventure at the time of the procedure; Z87.891 Personal history of nicotine dependence; Z95.5 Presence of coronary angioplasty implant and graft; Z99.2 Dependence on renal dialysis; Z79.899 Other long term (current) drug therapy; Y92.89 Other specified places as the place of occurrence of the external cause
CPT/HCPCS: 36415; 71046; 80048; 80053; 80061; 82803; 83605; 83735; 83880; 85014; 85025; 85610; 85730; 87040; 93306; 93460; 94760; 97161; 97530; 99152; 99153; A4620; A6258; C1751; C1760; C1769; G0378; J1644; J2001; J2250; J3010; J3490; J7030; Q0163; Q9967

== ENCOUNTER 2022-03-25 15:41 | Observation (INO) | payer MEDICARE, MEDICAID ==
[~2022-03-25] VITALS: Ht 167.6 cm; Wt 60.8 kg
[~2022-03-25 15:41] MED LIST changes: -BENA10TA74 PO; +BENA20TA83 PO; +NITR0.4T51 SL; +ONDA4TAB6 PO
[2022-03-25] MEDS ORDERED: diltiazem 5mg/ml 5ml inj. IV ONE (16:40)
[2022-03-25 17:01] LABS: BASOPHILS % (AUTO) 0.4 % (0-1); EOSINOPHILS % (AUTO) 0.5 % (0-6); HEMATOCRIT 33.2 % (42.0-52.0); HEMOGLOBIN 11.3 g/dl (14.0-17.9); LYMPHOCYTES # (AUTO) 0.6 X10'3 (1.1-4.8); LYMPHOCYTES % (AUTO) 7.7 % (21-51); MEAN CORPUSCULAR VOLUME 91.2 FL (78-98); MEAN PLATELET VOLUME 7.9 FL (7.4-10.4); MONOCYTES # (AUTO) 0.6 X10'3 (0-0.9); MONOCYTES % (AUTO) 8.5 % (2-12); NEUTROPHILS % (AUTO) 82.9 % (42-75); PLATELET COUNT 166 X10'3 (140-440); RED BLOOD COUNT 3.64 X10'6 (4.70-6.10); RED CELL DISTRIBUTION WIDTH 15.9 % (11.5-14.5); WHITE BLOOD COUNT 7.3 X10'3 (4.5-11.0)
[2022-03-25 17:16] LABS: ALANINE AMINOTRANSFERASE 7 U/L (12-78); ALBUMIN 3.3 G/DL (3.4-5.0); ALKALINE PHOSPHATASE 73 IU/L (46-116); ANION GAP 9 (8-16); ASPARTATE AMINO TRANSFERASE 6 U/L (10-37); BILIRUBIN,TOTAL 0.8 MG/DL (0.1-1.0); BLOOD UREA NITROGEN 43 MG/DL (7-18); BUN/CREATININE RATIO 6.8 (5.4-32.0); CALCIUM 8.4 MG/DL (8.5-10.1); CHLORIDE 99 MMOL/L (99-107); CREATININE 6.34 MG/DL (0.60-1.10); GLUCOSE 85 MG/DL (70-104); POTASSIUM 4.4 MMOL/L (3.5-5.1); SODIUM 135 MMOL/L (135-145); TOTAL CARBON DIOXIDE 26.9 MMOL/L (24-32); TOTAL PROTEIN 6.6 G/DL (6.4-8.2); eGFR 9 ML/MIN
[2022-03-25] MEDS ORDERED: heparin 25,000 UNIT/250ml bag 250 ML IV SCH (19:00)
[2022-03-25] MEDS ORDERED: heparin 10,000 units/1 ML INJ IV PRN (19:00)
[2022-03-25] MEDS ORDERED: heparin 10,000 units/1 ML INJ IV ONE ×2 (19:00→19:15)
[2022-03-25] MEDS ORDERED: ipratropium/albuterol 3ml nebule NEB ONE (19:20)
[2022-03-25 19:26] LABS: APTT 36 SECONDS (22-32)
[2022-03-25 20:01] LABS: BASOPHILS % (AUTO) 0.5 % (0-1); EOSINOPHILS % (AUTO) 0.2 % (0-6); HEMATOCRIT 30.2 % (42.0-52.0); HEMOGLOBIN 10.1 g/dl (14.0-17.9); LYMPHOCYTES # (AUTO) 0.4 X10'3 (1.1-4.8); MEAN CORPUSCULAR HEMOGLOBIN 31.1 PG (27.0-31.0); MEAN CORPUSCULAR HGB CONC 33.4 g/dL (33.0-36.5); MEAN CORPUSCULAR VOLUME 93.2 FL (78-98); MONOCYTES # (AUTO) 0.5 X10'3 (0-0.9); MONOCYTES % (AUTO) 7.7 % (2-12); NEUTROPHILS % (AUTO) 84.6 % (42-75); PLATELET COUNT 140 X10'3 (140-440); RED BLOOD COUNT 3.24 X10'6 (4.70-6.10); RED CELL DISTRIBUTION WIDTH 16.1 % (11.5-14.5); WHITE BLOOD COUNT 5.9 X10'3 (4.5-11.0)
--- NOTE | 2022-03-25 20:38 | NUR ---
CRITICAL LAB FOR [facility]OP[facility]IN 253.NOTIFIED DR. LARKIN.
[2022-03-25] MEDS ORDERED: HYDROcodone/acetaminophen 10/325mg tab PO PRN (20:40)
[2022-03-25] MEDS ORDERED: magnesium hydroxide 30ml (MOM) UD suspension PO PRN (20:40)
[2022-03-25] MEDS ORDERED: HYDROcodone/acetaminophen 5mg/325mg tablet PO PRN (20:40)
[2022-03-25] MEDS ORDERED: nitroGLYCERIN 0.4mg SUBLingual tab SL PRN (20:40)
[2022-03-25] MEDS ORDERED: acetaminophen 325mg tablet PO PRN ×2 (20:40)
[2022-03-25] MEDS ORDERED: ondansetron/PF 4mg/2ml inj IV PRN (20:40)
[2022-03-25] MEDS ORDERED: morphine 2 MG/ML inj. syringe IV PRN ×2 (20:40)
[2022-03-25] MEDS ORDERED: mag hydrox/Alum hydrox/simeth 30ml oral suspension PO PRN (20:40)
[2022-03-26] MEDS ORDERED: VITA-268 PO (00:48)
[2022-03-26] MEDS ORDERED: TIOT18CA3 IH (00:48)
[2022-03-26] MEDS ORDERED: SODI10PO PO (00:48)
[2022-03-26] MEDS ORDERED: ASPI-1071 PO (00:48)
[2022-03-26] MEDS ORDERED: CALC500T11 PO (00:48)
[2022-03-26] MEDS ORDERED: LACT10SO57 PO (00:48)
[2022-03-26] MEDS ORDERED: IRON100V2 IV (00:52)
[2022-03-26] MEDS ORDERED: CAPT12.53 PO (00:52)
[2022-03-26] MEDS ORDERED: [UNRECOGNIZED DRUG - CODE] PO (00:52)
[2022-03-26] MEDS ORDERED: CINA30TA2 PO (00:52)
[2022-03-26 01:30] VITALS: BP 148/91
[2022-03-26 03:04] LABS: ALBUMIN 2.9 G/DL (3.4-5.0); ANION GAP 10 (8-16); BASOPHILS % (AUTO) 0.6 % (0-1); BLOOD UREA NITROGEN 50 MG/DL (7-18); BUN/CREATININE RATIO 6.8 (5.4-32.0); CHLORIDE 98 MMOL/L (99-107); EOSINOPHILS % (AUTO) 0.3 % (0-6); GLUCOSE 125 MG/DL (70-104); HEMATOCRIT 31.7 % (42.0-52.0); HEMOGLOBIN 10.4 g/dl (14.0-17.9); LYMPHOCYTES # (AUTO) 0.7 X10'3 (1.1-4.8); LYMPHOCYTES % (AUTO) 14.4 % (21-51); MEAN CORPUSCULAR HEMOGLOBIN 30.2 PG (27.0-31.0); MEAN CORPUSCULAR HGB CONC 32.9 g/dL (33.0-36.5); MEAN CORPUSCULAR VOLUME 91.8 FL (78-98); MEAN PLATELET VOLUME 8.1 FL (7.4-10.4); MONOCYTES # (AUTO) 0.6 X10'3 (0-0.9); MONOCYTES % (AUTO) 12.3 % (2-12); NEUTROPHILS # (AUTO) 3.4 X10'3 (1.8-7.7); NEUTROPHILS % (AUTO) 72.4 % (42-75); PLATELET COUNT 157 X10'3 (140-440); POTASSIUM 5.1 MMOL/L (3.5-5.1); RED BLOOD COUNT 3.45 X10'6 (4.70-6.10); RED CELL DISTRIBUTION WIDTH 16.1 % (11.5-14.5); SODIUM 136 MMOL/L (135-145); TOTAL CARBON DIOXIDE 27.7 MMOL/L (24-32); WHITE BLOOD COUNT 4.7 X10'3 (4.5-11.0); eGFR 7 ML/MIN
[2022-03-26 06:00] VITALS: BP 128/76
--- NOTE | 2022-03-26 06:52 | NUR ---
Problems reprioritized. Patient report given, questions answered & plan of care reviewed with CHRISTINA Owen.
--- NOTE | 2022-03-26 07:00 | NUR ---
Patient in room PCU 3018. I have received report from CHRISTINA Winters and had the opportunity to ask questions and assume patient care.
--- NOTE | 2022-03-26 07:21 | NUR ---
PAGER ID: [phone] MESSAGE: Room: 3018B: Joanie: URIEL: I was told by noc shift that this pt should be NPO. The pt has been noncompliant with this request, but no orders have been placed for them to be NPO. CHRISTINA Owen [id number]
[2022-03-26] MEDS ORDERED: aspirin 81mg, enteric-coated 1 TAB TABLET.DR PO SCH (08:00)
[2022-03-26] MEDS ORDERED: docusate sod 100mg capsule PO SCH (08:00)
--- NOTE | 2022-03-26 08:26 | NUR ---
PAGER ID: [phone] MESSAGE: Room: 8018B: Joanie: This patient has reported to me that his typical dialysis schedule is Thursday/Thursday/Thursday. CHRISTINA Owen [id number]
[2022-03-26] MEDS ORDERED: EPOETIN ALFA-EPBX 20,000 UNIT/ML 1 ML MDV IV ONE (09:35)
[2022-03-26] MEDS ORDERED: normal saline 1000ml 100 ML IV PRN (09:35)
[2022-03-26] MEDS ORDERED: normal saline 1000ml 250 ML IV PRN (09:35)
[2022-03-26] MEDS ORDERED: heparin 1,000 units/ml 10ml inj HE ONE ×2 (09:40)
[2022-03-26 11:00] VITALS: BP 166/96
[2022-03-26] MEDS ORDERED: CLOP75TA15 PO (14:58)
[2022-03-26] MEDS ORDERED: NITR0.4T51 SL (14:58)
[2022-03-26 15:00] VITALS: BP 153/98
--- NOTE | 2022-03-26 16:45 | NUR ---
Pt discharged to home from the hospital. All discharge paperwork reviewed with this check writer at the time of discharge. Discharge medications were sent to the pt's preferred pharmacy. PIV and telemetry were removed and belongings were returned at the time of discharge.
[2022-03-27 07:21] LABS: HBSAG SCREEN Negative (Negative)
== END 2022-03-26 16:48 | disposition home or self-care (01) ==
LOC: ER 15:42 → ED HOLD 20:44 → EDBEDREQ 23:49 → PCU 3S 03-26 01:21
PROVIDERS: ADMIT Internal Medicine; ATTEND Family Medicine
DX: I21.A1 Myocardial infarction type 2 (principal); I48.20 Chronic atrial fibrillation, unspecified; I48.0 Paroxysmal atrial fibrillation; R07.89 Other chest pain; I12.0 Hypertensive chronic kidney disease with stage 5 chronic kidney disease or end stage renal disease; N18.6 End stage renal disease; D63.8 Anemia in other chronic diseases classified elsewhere; J96.11 Chronic respiratory failure with hypoxia; K21.9 Gastro-esophageal reflux disease without esophagitis; J43.9 Emphysema, unspecified; I25.10 Atherosclerotic heart disease of native coronary artery without angina pectoris; I70.0 Atherosclerosis of aorta; Z66 Do not resuscitate; Z99.2 Dependence on renal dialysis; I25.2 Old myocardial infarction; Z79.899 Other long term (current) drug therapy; Z87.891 Personal history of nicotine dependence; Z99.81 Dependence on supplemental oxygen
CPT/HCPCS: 36415; 71045; 80048; 80053; 83880; 84484; 85025; 85610; 85730; 87081; 87340; 94640; 96365; 96366; 96375; 96376; 99284; G0257; G0378; J1644; J3490; Q4081

== ENCOUNTER 2022-06-30 15:09 | Emergency (ER) | payer MEDICARE, MEDICAID ==
[~2022-06-30] VITALS: Ht 165.1 cm; Wt 63.6 kg
[~2022-06-30 15:09] MED LIST changes: +ASPI-1071 PO; +CALC500T11 PO; +CAPT12.53 PO; +CINA30TA2 PO; +CLOP75TA15 PO; +IRON100V2 IV; +LACT10SO57 PO; -NITR0.4T51 SL; +SODI10PO PO; +TIOT18CA3 IH; +VITA-268 PO; +[UNRECOGNIZED DRUG - CODE] PO
[2022-06-30 15:12] VITALS: BP 154/81
== END 2022-06-30 17:33 | disposition home or self-care (01) ==
LOC: ER 15:10
DX: Z00.00 Encounter for general adult medical examination without abnormal findings (principal); J44.9 Chronic obstructive pulmonary disease, unspecified; N18.9 Chronic kidney disease, unspecified; Z87.891 Personal history of nicotine dependence
CPT/HCPCS: 99282

== ENCOUNTER 2022-09-03 12:41 | Emergency (ER) | payer MEDICARE, MEDICAID ==
[~2022-09-03] VITALS: Ht 167.6 cm; Wt 63.0 kg
[~2022-09-03 12:41] MED LIST changes: -BENA20TA83 PO; +BENA40TA90 PO; -CALC500T11 PO; -CALC667T6 PO; -CAPT12.53 PO; -CINA30TA2 PO; +HYDR-4070 PO; -IRON100V2 IV; -LACT10SO57 PO; +LATA2.5D14 EACHEYE; -OMEP20CA15 PO; -ONDA4TAB6 PO; -[UNRECOGNIZED DRUG - CODE] PO
[2022-09-03] MEDS ORDERED: methylPREDNISolone sod succ 125mg/2ml vial IV ONE (13:50)
[2022-09-03 13:58] LABS: BASOPHILS # (AUTO) 0.1 X10'3 (0-0.2); EOSINOPHILS # (AUTO) 0.1 X10'3 (0-0.9); HEMOGLOBIN 11.9 g/dl (14.0-17.9); LYMPHOCYTES # (AUTO) 0.6 X10'3 (1.1-4.8); MEAN CORPUSCULAR HEMOGLOBIN 30.3 PG (27.0-31.0); MEAN CORPUSCULAR VOLUME 91.6 FL (78-98); MEAN PLATELET VOLUME 7.8 FL (7.4-10.4); MONOCYTES # (AUTO) 0.5 X10'3 (0-0.9); MONOCYTES % (AUTO) 9.4 % (2-12); NEUTROPHILS # (AUTO) 4.1 X10'3 (1.8-7.7); NEUTROPHILS % (AUTO) 76.6 % (42-75); PLATELET COUNT 175 X10'3 (140-440); RED BLOOD COUNT 3.93 X10'6 (4.70-6.10); RED CELL DISTRIBUTION WIDTH 16.2 % (11.5-14.5); WHITE BLOOD COUNT 5.4 X10'3 (4.5-11.0)
[2022-09-03 14:12] LABS: ALANINE AMINOTRANSFERASE 15 U/L (12-78); ALBUMIN 3.5 G/DL (3.4-5.0); ALBUMIN/GLOBULIN RATIO 1.1 (1.1-1.5); ALKALINE PHOSPHATASE 81 IU/L (46-116); ANION GAP 8 (8-16); ASPARTATE AMINO TRANSFERASE 16 U/L (10-37); BILIRUBIN,TOTAL 0.7 MG/DL (0.1-1.0); BLOOD UREA NITROGEN 50 MG/DL (7-18); CALCIUM 9.6 MG/DL (8.5-10.1); CHLORIDE 96 MMOL/L (99-107); CREATININE 6.22 MG/DL (0.60-1.10); GLUCOSE 93 MG/DL (70-104); SODIUM 134 MMOL/L (135-145); TOTAL CARBON DIOXIDE 29.9 MMOL/L (24-32); TOTAL PROTEIN 6.8 G/DL (6.4-8.2); eGFR 9 ML/MIN
[2022-09-03 14:13] LABS: POTASSIUM 4.5 MMOL/L (3.5-5.1)
[2022-09-03 14:38] LABS: MAGNESIUM 2.2 MG/DL (1.5-2.4); PHOSPHORUS 6.9 MG/DL (2.3-4.5)
[2022-09-03] MEDS ORDERED: albumin (human) 25% 100ml IV 100 ML IV PRN (14:40)
[2022-09-03] MEDS ORDERED: heparin 1,000 units/ml 10ml inj IV ONE (14:40)
[2022-09-03] MEDS ORDERED: heparin 1,000unit/ml 10ml vial 10 ML IV ONE (14:40)
[2022-09-03] MEDS ORDERED: heparin 1,000 units/ml 10ml inj HE ONE ×2 (15:55)
--- NOTE | 2022-09-03 18:36 | NUR ---
Pt stil in dialysis
--- NOTE | 2022-09-03 21:06 | NUR ---
Pt back from dialysis and states, " I feel so much better and am ready to go home. I can breath again."
--- NOTE | 2022-09-03 21:15 | NUR ---
pt back from dialysis and is discharged home
[2022-09-04 00:18] VITALS: BP 118/60
== END 2022-09-03 21:00 | disposition home or self-care (01) ==
LOC: ER 12:41
DX: R06.02 Shortness of breath (principal); N18.6 End stage renal disease; I25.10 Atherosclerotic heart disease of native coronary artery without angina pectoris; I50.9 Heart failure, unspecified; I25.2 Old myocardial infarction; J44.9 Chronic obstructive pulmonary disease, unspecified; K21.9 Gastro-esophageal reflux disease without esophagitis; Z98.61 Coronary angioplasty status; Z99.2 Dependence on renal dialysis
CPT/HCPCS: 36415; 71045; 80053; 83735; 84100; 85025; 93005; 96365; 96366; 96375; 99285; G0257; J1644; J2930; J7030; 99284; A4615; A6402

== ENCOUNTER 2022-09-23 12:25 | Emergency (ER) | payer MEDICARE, MEDICAID ==
[~2022-09-23] VITALS: Ht 167.6 cm; Wt 67.3 kg
[2022-09-23 13:01] LABS: BASOPHILS % (AUTO) 0.8 % (0-1); EOSINOPHILS # (AUTO) 0.1 X10'3 (0-0.9); EOSINOPHILS % (AUTO) 2.7 % (0-6); HEMATOCRIT 31.4 % (42.0-52.0); HEMOGLOBIN 10.4 g/dl (14.0-17.9); LYMPHOCYTES # (AUTO) 0.6 X10'3 (1.1-4.8); LYMPHOCYTES % (AUTO) 10.8 % (21-51); MEAN CORPUSCULAR HEMOGLOBIN 30.1 PG (27.0-31.0); MEAN CORPUSCULAR VOLUME 91.2 FL (78-98); MEAN PLATELET VOLUME 8.4 FL (7.4-10.4); MONOCYTES # (AUTO) 0.6 X10'3 (0-0.9); MONOCYTES % (AUTO) 10.5 % (2-12); NEUTROPHILS # (AUTO) 4.2 X10'3 (1.8-7.7); NEUTROPHILS % (AUTO) 75.2 % (42-75); PLATELET COUNT 159 X10'3 (140-440); RED BLOOD COUNT 3.44 X10'6 (4.70-6.10); RED CELL DISTRIBUTION WIDTH 16.9 % (11.5-14.5); WHITE BLOOD COUNT 5.6 X10'3 (4.5-11.0)
[2022-09-23 13:16] LABS: APTT 34 SECONDS (22-32); D-DIMER 0.55 MG/L FEU (0-0.50)
[2022-09-23 13:18] LABS: ALANINE AMINOTRANSFERASE 16 U/L (12-78); ALBUMIN 3.1 G/DL (3.4-5.0); ANION GAP 14 (8-16); ASPARTATE AMINO TRANSFERASE 14 U/L (10-37); BILIRUBIN,TOTAL 0.8 MG/DL (0.1-1.0); BLOOD UREA NITROGEN 80 MG/DL (7-18); BUN/CREATININE RATIO 9.4 (5.4-32.0); CALCIUM 9.4 MG/DL (8.5-10.1); CHLORIDE 93 MMOL/L (99-107); GLUCOSE 89 MG/DL (70-104); POTASSIUM 4.8 MMOL/L (3.5-5.1); SODIUM 131 MMOL/L (135-145); TOTAL CARBON DIOXIDE 23.8 MMOL/L (24-32); TOTAL PROTEIN 6.1 G/DL (6.4-8.2); eGFR 6 ML/MIN
[2022-09-23] MEDS ORDERED: albuterol 2.5 MG/3 ML nebule NEB ONE (13:35)
[2022-09-23] MEDS ORDERED: ipratropium 0.5 MG/2.5ML nebule IH ONE (13:35)
[2022-09-23 13:46] LABS: ALKALINE PHOSPHATASE 69 IU/L (46-116)
--- NOTE | 2022-09-23 13:52 | NUR ---
RELIEVING RN FOR LUNCH, PT IS SITTING ON EDGE OF BED, RT AT BEDSIDE FOR TREATMENT
--- NOTE | 2022-09-23 14:06 | NUR ---
ANGIO TEAM WILL BE HERE SOON FOR PT
[2022-09-23] MEDS ORDERED: heparin 1,000unit/ml 10ml vial 10 ML ONE (14:17)
--- NOTE | 2022-09-23 14:20 | NUR ---
pt to angio
[2022-09-23] MEDS ORDERED: cefazolin/dext.iso 2gm/100ml 100 ML IV ONE ×2 (14:40→14:41)
--- NOTE | 2022-09-23 15:43 | NUR ---
Pt given and understands d/c instructions. Uses home O2 at 4L NC. Waiting for his ride home and new O2 tank.
[2022-09-23 15:44] VITALS: BP 129/52
== END 2022-09-23 15:58 | disposition home or self-care (01) ==
LOC: ER 12:25
DX: J44.1 Chronic obstructive pulmonary disease with (acute) exacerbation (principal); I13.0 Hypertensive heart and chronic kidney disease with heart failure and stage 1 through stage 4 chronic kidney disease, or unspecified chronic kidney disease; I50.9 Heart failure, unspecified; N18.9 Chronic kidney disease, unspecified; K21.9 Gastro-esophageal reflux disease without esophagitis
CPT/HCPCS: 36415; 36581; 71045; 77001; 80053; 83880; 85025; 85379; 85610; 85730; 93005; 94640; 96365; 99285; C1750; C1769; J0690; J1644; J7030; 94760; A4620; A9270